=== PATIENT | male | born 1960 | race American Indian/Alaskan Native ===

== ENCOUNTER 2020-09-22 19:10 | Inpatient (IN) | payer OTHER ==
--- NOTE | 2020-09-22 19:23 | Event Note ---
ED Screening Note ED Screening Note: 60 y/o male with PMH of ETOH abuse and current pancreatic cancer resents to ED with c/o of a 4 day history of N/V/D with chills and sweats and weakness. This initial assessment/diagnostic orders/clinical plan/treatment(s) is/are subject to change based on patients health status, clinical progression and re- assessment by fellow clinical providers in the ED. Further treatment and workup at subsequent clinical providers discretion. Patient/guardian urged not to elope from the ED as their condition may be serious if not clinically assessed and managed. Initial orders include: Labs, urine, EKG (hr 135 in triage)
[2020-09-22 19:54] LABS: Hematocrit 51.2 % (35.5-45.6); Hemoglobin 17.7 gm/dl (11.8-15.2); Mean Corpuscular HGB Conc 35 % (32-34); Mean Corpuscular Volume 106 fl (84-94); Platelet Count 103 K/mm3 (140-440); Red Blood Count 4.82 M/mm3 (3.65-5.03)
[2020-09-22 19:58] LABS: Basophils % (Auto) 0.4 % (0.0-1.8); Lymphocytes # (Auto) 0.5 K/mm3 (1.2-5.4); Lymphocytes % (Auto) 16.1 % (13.4-35.0); Monocytes # (Auto) 0.3 K/mm3 (0.0-0.8); Monocytes % (Auto) 11.5 % (0.0-7.3)
[2020-09-22 20:11] LABS: Alanine Aminotransferase 63 units/L (7-56); Albumin 4.1 g/dL (3.9-5); BUN/Creatinine Ratio 6; Blood Urea Nitrogen 5 mg/dL (9-20); Calcium 9.3 mg/dL (8.4-10.2); Hemolysis Index 6
[2020-09-22] MEDS ORDERED: LORazepam 2 MG/ML VIAL IV PRN ×2 (21:52)
[2020-09-22] MEDS ORDERED: FAMOTIDINE 20 MG/2 ML INJ IV ONE (21:52)
[2020-09-22] MEDS ORDERED: diazePAM 10 MG/2 ML SYRINGE IV ONE (21:52)
--- NOTE | 2020-09-22 21:54 | Emergency Department Report ---
ED General Adult HPI - General Chief complaint: Weakness Stated complaint: ALCOHOL POISONING;CANCER PT PUI?: No Time Seen by Provider: 09/22/20 21:30 Source: patient, RN notes reviewed Mode of arrival: Wheelchair Limitations: Other (Patient is a poor historian) - History of Present Illness Initial comments: The patient was evaluated in the emergency department for symptoms described in the history of present illness. He/she was evaluated in the context of the global COVID-19 pandemic, which necessitated consideration that the patient might be at risk for infection with the virus that causes COVID-19. Institutional protocols and algorithms that pertain to the evaluation of patients at risk for COVID-19 are in a state of rapid change based on information released by regulatory bodies including the CDC and federal and s winters organizations. These policies and algorithms were followed during the patient's care in the emergency department. Please note that these policies, procedures and recommendations changed on a rapid basis. Mr. Serrano is a 60-year-old gentleman. He is not known to myself previously. He does not know who his primary care doctor is. He appears to have a history of alcoholism, question pancreatitis versus pancreatic cancer, and stroke. Patient is not sure where his diagnosis of "pancreatic cancer" was made. He does not believe he is currently taking chemotherapy or radiation therapy. He does not have an oncologist that he is aware of. He consumes alcohol on a daily basis. He reports that he consumes 4-5 beers daily. He presents to the ER today with a complaint of "I am going into withdrawal." He reports abdominal cramping, nausea, malaise, weakness, tremors. He denies headache, neck pain, chest pain, shortness of breath, homicidality, suicidality, loss of taste and smell. He denies urinary symptoms. He denies hallucinations. His last alcoholic drink was earlier on today. At the moment, his symptoms are constant, do not radiate anywhere, worsen with physical exertion, palpation, and decreased with rest. -: Gradual, hour(s) Location: abdomen Radiation: non-radiation Quality: aching Consistency: constant Improves with: rest Worsens with: movement - Related Data Home Medications Medication Instructions Recorded Confirmed Last Taken No Known Home Medications [No 09/22/20 09/22/20 Unknown Reported Home Medications] Allergies Allergy/AdvReac Type Severity Reaction Status Date / Time No Known Allergies Allergy Unverified 09/22/20 22:23 ED Review of Systems ROS: Stated complaint: ALCOHOL POISONING;CANCER PT Other details as noted in HPI Constitutional: malaise, weakness. denies: fever Eyes: denies: vision change ENT: denies: congestion Respiratory: denies: wheezing Cardiovascular: denies: chest pain Gastrointestinal: abdominal pain, nausea. denies: vomiting, hematemesis, melena, hematochezia Genitourinary: denies: dysuria Musculoskeletal: myalgia Neurological: weakness Psychiatric: denies: homicidal thoughts, suicidal thoughts ED Past Medical Hx - Past Medical History Previous Medical History?: Yes Hx CVA: Yes (18 months ago) Hx of Cancer: Yes (Pancreatic) - Surgical History Past Surgical History?: No - Medications Home Medications: Home Medications Medication Instructions Recorded Confirmed Last Taken Type No Known Home Medications [No 09/22/20 09/22/20 Unknown History Reported Home Medications] ED Physical Exam - General Limitations: Physical Limitation General appearance: alert, in no apparent distress - Head Head exam: Present: atraumatic, normocephalic - Eye Eye exam: Present: normal appearance - ENT ENT exam: Present: mucous membranes dry, normal external ear exam, other (Tongue fasciculations noted) - Neck Neck exam: Present: normal inspection, full ROM. Absent: tenderness, meningismus - Respiratory Respiratory exam: Present: decreased breath sounds. Absent: respiratory dist ress, wheezes, rales, rhonchi, stridor - Cardiovascular Cardiovascular Exam: Present: normal rhythm, tachycardia, normal heart sounds. Absent: bradycardia, irregular rhythm, systolic murmur, diastolic murmur, rubs, gallop - GI/Abdominal GI/Abdominal exam: Present: soft, tenderness (There is mild epigastric tenderness). Absent: distended, guarding, rebound, rigid, pulsatile mass - Rectal Rectal exam: Present: deferred - Extremities Exam Extremities exam: Present: normal inspection, full ROM, other (2+ pulses noted in the bilateral upper and lower extremities. There is no palpable cord. negative Homans sign. Muscular compartments are soft. The pelvis is stable.). Absent: pedal edema, joint swelling, calf tenderness - Back Exam Back exam: Present: normal inspection, full ROM. Absent: CVA tenderness (R), CVA tenderness (L), muscle spasm, paraspinal tenderness, vertebral tenderness - Neurological Exam Neurological exam: Present: alert, other (No facial droop. Tongue midline. Extraocular movements intact bilaterally. Facial sensation intact to light touch in V1, V2, V3 distribution bilaterally. 5 and a 5 strength in 4 extremities. Sensation intact to light touch in 4 extremities.) - Psychiatric Psychiatric exam: Present: anxious. Absent: homicidal ideation, suicidal ideation - Skin Skin exam: Present: warm, dry, intact, normal color. Absent: rash ED Course Vital Signs 09/22/20 09/22/20 09/22/20 19:18 22:00 22:47 Temperature 98.3 F Pulse Rate 135 H 99 H 105 H Respiratory 18 22 18 Rate Blood Pressure 141/96 Blood Pressure 148/104 152/103 [Left] O2 Sat by Pulse 99 99 98 Oximetry - Reevaluation(s) Reevaluation #1: 09/22/20 22:16 Differential diagnosis, including but not limited to: Alcohol withdrawal, dehydration, electrolyte derangement, pancreatitis Assessment and plan: 60-year-old gentleman who was tachycardic, tremulous, weak, with tongue fasciculations, likely alcohol withdrawal, with probable superimposed pancreatitis, and alcoholic transaminitis. We will treat his symptoms with IV fluids, benzodiazepines, obtain CT scan of the abdomen pelvis, and reassess after initial data points. Anticipate admission for the af orementioned. Patient not homicidal or suicidal, does not meet criteria for 1013/involuntary hold. Patient has given verbal consent for his information to be discussed with family/significant other, should the need arise. Leukopenia likely secondary to chronic alcoholism. Transaminitis likely se condary to chronic alcoholism patient denies loss of taste, loss of smell, fever, cough, Covid symptomatology. 09/22/20 22:17 09/22/20 22:18 Reevaluation #2: 09/22/20 22:27 Additional history obtained from . Patient typically follows at the CT. He was presumptively diagnosed with pancreatic cancer at the CT. He does not have an oncologist. He is not receiving any treatment for this. She is not certain how this diagnosis was made, whether it be from CAT scan, biopsy or otherwise. She brought the patient here because she was concerned about alcohol withdra wal, and dehydration as well as pancreatitis. Reevaluation #3: 09/22/20 22:37 Lactic acidosis likely type II lactic acidosis, probably secondary to chronic alcoholism. I do not suspect invasive bacterial illness at this time. Reevaluation #4: 09/22/20 22:57 CT scan abdomen pelvis reviewed and appreciated. No surgical complications noted. Pancreatitis and hepatic steatosis identified. Nonobstructing nephrolithiasis, pulmonary nodule nonemergent, this can be followed up as an outpatient. Hospital physician, Dr. Chinmay Tinajero, To admit patient to the medical service Reevaluation #5: 09/22/20 23:15 initial ciwa score 6 ED Medical Decision Making - Lab Data Result diagrams: 09/22/20 19:38 09/22/20 19:38 Vital Signs 09/22/20 09/22/20 19:18 22:00 Temperature 98.3 F Pulse Rate 135 H 99 H Respiratory 18 22 Rate Blood Pressure 141/96 Blood Pressure 148/104 [Left] O2 Sat by Pulse 99 99 Oximetry Lab Results 09/22/20 09/22/20 09/22/20 Range/Units 19:38 19:38 19:38 WBC 2.9 L (4.5-11.0) K/mm3 RBC 4.82 (3.65-5.03) M/mm3 Hgb 17.7 H (11.8-15.2) gm/dl Hct 51.2 H (35.5-45.6) % MCV 106 H (84-94) fl MCH 37 H (28-32) pg MCHC 35 H (32-34) % RDW 15.0 (13.2-15.2) % Plt Count 103 L (140-440) K/mm3 Lymph % (Auto) 16.1 (13.4-35.0) % [place] % (Auto) 11.5 H (0.0-7.3) % Eos % (Auto) 1.0 (0.0-4.3) % Baso % (Auto) 0.4 (0.0-1.8) % Lymph # (Auto) 0.5 L (1.2-5.4) K/mm3 [place] # (Auto) 0.3 (0.0-0.8) K/mm3 Eos # (Auto) 0.0 (0.0-0.4) K/mm3 Baso # (Auto) 0.0 (0.0-0.1) K/mm3 Seg Neutrophils % 71.0 H (40.0-70.0) % Seg Neutrophils # 2.0 (1.8-7.7) K/mm3 Sodium 131 L (137-145) mmol/L Potassium 3.5 L (3.6-5.0) mmol/L Chloride 89.6 L (98-107) mmol/L Carbon Dioxide 26 (22-30) mmol/L Anion Gap 19 mmol/L BUN 5 L (9-20) mg/dL Creatinine 0.8 (0.8-1.3) mg/dL Estimated GFR > 60 ml/min BUN/Creatinine Ratio 6 % Glucose 120 H (75-100) mg/dL Calcium 9.3 (8.4-10.2) mg/dL Total Bilirubin 1.00 (0.1-1.2) mg/dL AST 241 H (5-40) units/L ALT 63 H (7-56) units/L Alkaline Phosphatase 118 (35-129) units/L Total Protein 8.3 H (6.3-8.2) g/dL Albumin 4.1 (3.9-5) g/dL Albumin/Globulin Ratio 1.0 % Lipase 400 H (13-60) units/L Urine Color (Yellow) Urine Turbidity (Clear) Urine pH (5.0-7.0) Ur Specific [place] (1.003-1.030) Urine Protein (Negative) mg/dL Urine Glucose (UA) (Negative) mg/dL Urine Ketones (Negative) mg/dL Urine Blood (Negative) Urine Nitrite (Negative) Urine Bilirubin (Negative) Urine Urobilinogen (<2.0) mg/dL Ur Leukocyte Esterase (Negative) Urine WBC (Auto) (0.0-6.0) /HPF Urine RBC (Auto) (0.0-6.0) /HPF U Epithel Cells (Auto) (0-13.0) /HPF Hyaline Casts /LPF Urine Mucus /HPF Plasma/Serum Alcohol 0.05 (0-0.07) % 09/22/20 Range/Units Unknown WBC (4.5-11.0) K/mm3 RBC (3.65-5.03) M/mm3 Hgb (11.8-15.2) gm/dl Hct (35.5-45.6) % MCV (84-94) fl MCH (28-32) pg MCHC (32-34) % RDW (13.2-15.2) % Plt Count (140-440) K/mm3 Lymph % (Auto) (13.4-35.0) % [place] % (Auto) (0.0-7.3) % Eos % (Auto) (0.0-4.3) % Baso % (Auto) (0.0-1.8) % Lymph # (Auto) (1.2-5.4) K/mm3 [place] # (Auto) (0.0-0.8) K/mm3 Eos # (Auto) (0.0-0.4) K/mm3 Baso # (Auto) (0.0-0.1) K/mm3 Seg Neutrophils % (40.0-70.0) % Seg Neutrophils # (1.8-7.7) K/mm3 Sodium (137-145) mmol/L Potassium (3.6-5.0) mmol/L Chloride (98-107) mmol/L Carbon Dioxide (22-30) mmol/L Anion Gap mmol/L BUN (9-20) mg/dL Creatinine (0.8-1.3) mg/dL Estimated GFR ml/min BUN/Creatinine Ratio % Glucose (75-100) mg/dL Calcium (8.4-10.2) mg/dL Total Bilirubin (0.1-1.2) mg/dL AST (5-40) units/L ALT (7-56) units/L Alkaline Phosphatase (35-129) units/L Total Protein (6.3-8.2) g/dL Albumin (3.9-5) g/dL Albumin/Globulin Ratio % Lipase (13-60) units/L Urine Color [place] (Yellow) Urine Turbidity Clear (Clear) Urine pH 6.0 (5.0-7.0) Ur Specific [place] 1.024 (1.003-1.030) Urine Protein 100 mg/dl (Negative) mg/dL Urine Glucose (UA) Neg (Negative) mg/dL Urine Ketones Tr (Negative) mg/dL Urine Blood Sm (Negative) Urine Nitrite Neg (Negative) Urine Bilirubin Neg (Negative) Urine Urobilinogen 4.0 (<2.0) mg/dL Ur Leukocyte Esterase Neg (Negative) Urine WBC (Auto) 2.0 (0.0-6.0) /HPF Urine RBC (Auto) 3.0 (0.0-6.0) /HPF U Epithel Cells (Auto) < 1.0 (0-13.0) /HPF Hyaline Casts 1 /LPF Urine Mucus 3+ /HPF Plasma/Serum Alcohol (0-0.07) % - EKG Data -: EKG Interpreted by Ks EKG shows normal: sinus rhythm Rate: tachycardia - EKG Data When compared to previous EKG there are: previous EKG unavailable 09/22/20 22:16 EKG time of interpretation: 19: 33 There is no prior EKG available for comparison. Sinus tachycardia, 130 bpm. Borderline rightward axis deviation. Left ventricular hypertrophy. Poor R wave progression. QTc, QT, QRS, KS within normal limits. This is an abnormal EKG. There is motion artifact. This is not a STEMI. - Radiology Data Radiology results: pending, report reviewed, image reviewed CT ABDOMEN AND PELVIS WITH CONTRAST INDICATION / CLINICAL INFORMATION: acute a bd pain pancreatitis. TECHNIQUE: Axial CT images were obtained through the abdomen and pelvis after 100 cc Omni [address] scans at this location are performed using CT dose reduction for ALARA by means of automated exposure control. COMPARISON: None available. FINDINGS: LOWER CHEST: 4 mm pulmonary nodule in the posterior basal segment of the right lower lobe (axial series 2 image 18). HEPATOBILIARY: Diffuse fatty infiltration of the liver without focal hepatic lesion. No significant biliary abnormality. PANCREAS/SPLEEN/ADRENALS: Edematous, mildly enlarged appearance of the pancreatic head and uncinate process with a moderate amount of peripancreatic fluid. No definite evidence of necrosis at this time. Mild nodular thickening of the left adrenal gland. Spleen demonstrates no significant abnormality. GENITOURINARY: 5 mm right-sided nonobstructing nephrolith. No obstructive uropathy. No solid renal mass. Ureters and bladder demonstrate no significant abnormality. GASTROINTESTINAL/MESENTERY: Small left-sided fat-containing inguinal hernia with a small portion of small bowel wall herniating into the proximal aspect. No bowel obstruction. Mild reactive edema involving the retroperitoneal portions of the duodenum adjacent to the pancreatic inflammation. RETROPERITONEUM: No significant adenopathy. Small amount of upper retroperitoneal fluid. REPRODUCTIVE ORGANS: No significant abnormality. VASCULAR: Mild atherosclerotic calcification without acute abnormality. Portal venous structures, superior mesenteric vein, and splenic vein are patent. Splenic artery demonstrates no significant abnormality. BODY WALL: No significant abnormality. SKELETAL SYSTEM: Left hip gamma nail. No acute fracture or aggressive osseous lesion identified. Diffuse degenerative change. Mild levoconvex scoliosis. IMPRESSION: 1. Acute pancreatitis at the pancreatic head and uncinate process with a moderate amount of disorganized peripancreatic fluid. No evidence of del cid creatic necrosis at this time. Recommend continued follow-up, as warranted. 2. 4 mm pulmonary nodule in the right lower lung, see recommendations below. 3. Hepatic steatosis. 4. 5 mm right-sided nonobstructing nephrolith. 5. Additional findings as above. INCIDENTAL PULMONARY NODULE RECOMMENDATIONS Solid Nodule size <6 mm -- Single or Multiple - Low Risk Patient: No routine follow-up - High Risk Patient: Optional CT at 12 months Note These recommendations do not apply to lung cancer screening, patients with immunosuppression, or patients with known primary cancer. Note Newly detected indeterminate nodule in persons 35 years of age or older. Persons under the age of 35 should not receive follow-up unless there is a known primary cancer. Low Risk Patient -- minimal or absent history of smoking and of other known risk factors. High Risk Patient -- history of smoking or of other known risk factors. Nodule dimensions are average of long and short axes, rounded to the nearest millimeter. Based on 2017 Fleischner Society Guidelines found in Radiology 2017 284:228-243. http [email or web address].[email or web address] Signer Name: Jona Lutz MD Signed: 09/22/2020 9:44 PM Workstation Name: [id number] Critical Care Time: Yes Critical care time in (mins) excluding proc time.: 35 Critical care attestation.: If time is entered above; I have spent that time in minutes in the direct care of this critically ill patient, excluding procedure time. ED Disposition Clinical Impression: Transaminitis, Acute dehydration, Hepatic steatosis, Pulmonary nodule, Nephrolith Alcohol withdrawal Qualifiers: Complication of substance-induced condition: with unspecified complication Qualified Code(s): F10.239 - Alcohol dependence with withdrawal, unspecified Acute pancreatitis Qualifiers: Pancreatitis type: alcohol induced Acute pancreatitis complication: unspecified Qualified Code(s): K85.20 - Alcohol induced acute pancreatitis without necrosis or infection Disposition: DC-09 OP ADMIT IP TO THIS HOSP Is pt being admited?: Yes Does the pt Need Aspirin: No Condition: Fair Referrals: PRIMARY CARE, [Primary Care Provider] - 3-5 Days
[2020-09-22] MEDS ORDERED: D5W/0.45% NACL 1,000 ML IV SCH (22:00)
[2020-09-22 22:04] LABS: Bilirubin,Urine NEG (Negative); Blood,Urine SM (Negative); Color,Urine Amber (Yellow); Hyaline Casts,Urine 1 /LPF; Mucus,Urine 3+ /HPF
--- NOTE | 2020-09-22 22:49 | Cat Scan Report ---
CT ABDOMEN AND PELVIS WITH CONTRAST INDICATION / CLINICAL INFORMATION: acute abd pain pancreatitis. TECHNIQUE: Axial CT images were obtained through the abdomen and pelvis after 100 cc Omni [address] scans at this location are performed using CT dose reduction for ALARA by means of automated expos ure control. COMPARISON: None available. FINDINGS: LOWER CHEST: 4 mm pulmonary nodule in the posterior basal segment of the right lower lobe (axial seri es 2 image 18). HEPATOBILIARY: Diffuse fatty infiltration of the liver without focal hepatic lesion. No significant b iliary abnormality. PANCREAS/SPLEEN/ADRENALS: Edematous, mildly enlarged appearance of the pancreatic head and uncinate p rocess with a moderate amount of peripancreatic fluid. No definite evidence of necrosis at this time. Mild nodular thickening of the left adrenal gland. Spleen demonstrates no significant abnormality. GENITOURINARY: 5 mm right-sided nonobstructing nephrolith. No obstructive uropathy. No solid renal ma ss. Ureters and bladder demonstrate no significant abnormality. GASTROINTESTINAL/MESENTERY: Small left-sided fat-containing inguinal hernia with a small portion of s mall bowel wall herniating into the proximal aspect. No bowel obstruction. Mild reactive edema involv ing the retroperitoneal portions of the duodenum adjacent to the pancreatic inflammation. RETROPERITONEUM: No significant adenopathy. Small amount of upper retroperitoneal fluid. REPRODUCTIVE ORGANS: No significant abnormality. VASCULAR: Mild atherosclerotic calcification without acute abnormality. Portal venous structures, sup erior mesenteric vein, and splenic vein are patent. Splenic artery demonstrates no significant abnorm ality. BODY WALL: No significant abnormality. SKELETAL SYSTEM: Left hip gamma nail. No acute fracture or aggressive osseous lesion identified. Diff use degenerative change. Mild levoconvex scoliosis. IMPRESSION: 1. Acute pancreatitis at the pancreatic head and uncinate process with a moderate amount of disorgani zed peripancreatic fluid. No evidence of pancreatic necrosis at this time. Recommend continued follow -up, as warranted. 2. 4 mm pulmonary nodule in the right lower lung, see recommendations below. 3. Hepatic steatosis. 4. 5 mm right-sided nonobstructing nephrolith. 5. Additional findings as above. INCIDENTAL PULMONARY NODULE RECOMMENDATIONS Solid Nodule size <6 mm -- Single or Multiple - Low Risk Patient: No routine follow-up - High Risk Patient: Optional CT at 12 months Note These recommendations do not apply to lung cancer screening, patients with immunosuppression, o r patients with known primary cancer. Note Newly detected indeterminate nodule in persons 35 years of age or older. Persons under the age of 35 should not receive follow-up unless there is a known primary cancer. Low Risk Patient -- minimal or absent history of smoking and of other known risk factors. High Risk Patient -- history of smoking or of other known risk factors. Nodule dimensions are average of long and short axes, rounded to the nearest millimeter. Based on 2017 Fleischner Society Guidelines found in Radiology 2017 284:228-243. [email or web address] Signer Name: Jona Lutz MD Signed: 09/22/2020 10:44 PM Workstation Name: [id number]
[2020-09-22] MEDS ORDERED: THIAMINE 100 MG, FOLIC ACID 1 MG, MULTIPLE VITAMIN INJ, ADULT 10 ML in SODIUM CHLORIDE ... IV ONE (23:15)
[2020-09-23] MEDS ORDERED: ONDANSETRON 4 MG/2 ML INJ IV PRN (00:07)
[2020-09-23] MEDS: MORPHINE 2 MG/1 ML INJ IV PRN ×2 (00:43→09:27)
[2020-09-23] MEDS: LORazepam 2 MG/ML VIAL IV PRN ×3 (01:19→21:42)
[2020-09-23] MEDS: SODIUM CHLORIDE 0.9% 1000 ML 1,000 ML IV SCH (05:49)
--- NOTE | 2020-09-23 07:00 | History and Physical Report ---
History of Present Illness Date of examination: 09/22/20 Date of admission: 09/22/20 22:57 Chief complaint: Chief complaint is weakness and abdominal pain. History of present illness: History of presenting illness: Patient is a 60-year-old male who who started having generalized weakness and then developed pain on cramping where we are basically is epigastric abdominal pain. There is history of nausea this pain, tremor and malaise he feels like he is going into alcohol withdrawal state based on past experience, patient said that he had some alcohol drink yesterday morning prior to onset of symptoms. Past History Past Medical History: stroke, other (PANCREATIC CANCER, ALCOHOL ABUSE) Medications and Allergies Allergies Allergy/AdvReac Type Severity Reaction Status Date / Time No Known Allergies Allergy Unverified 09/22/20 22:23 Home Medications Medication Instructions Recorded Confirmed Last Taken Type No Known Home Medications [No 09/22/20 09/22/20 Unknown History Reported Home Medications] Active Meds: Active Medications Sodium Chloride (Nacl 0.9% 1000 Ml) 1,000 mls @ 125 mls/hr IV DIRECT KATELYNN Last Admin: 09/23/20 05:49 Dose: 125 mls/hr Documented by: Thiamine HCl 100 mg/ Folic Acid 1 mg/ Multivitamins/Minerals 10 ml/ Sodium Chloride 1,011.2 mls @ 250 mls/hr IV DAILY@2200 KATELYNN Lorazepam (Lorazepam 2 Mg/Ml Vial) 2 mg IV Q1HR PRN PRN Reason: CIWA-Ar 8-15 Last Admin: 09/23/20 01:19 Dose: 2 mg Documented by: Lorazepam (Lorazepam 2 Mg/Ml Vial) 4 mg IV Q1HR PRN PRN Reason: CIWA-Ar 16-25 Lorazepam (Lorazepam 2 Mg/Ml Vial) 4 mg IV Q15MIN PRN PRN Reason: CIWA-Ar >25 Morphine Sulfate (Morphine 2 Mg/1 Ml Inj) 2 mg IV Q3H PRN PRN Reason: Pain, Moderate (4-6) Last Admin: 09/23/20 00:43 Dose: 2 mg Documented by: Ondansetron HCl (Ondansetron 4 Mg/2 Ml Inj) 4 mg IV Q8H PRN PRN Reason: Nausea And Vomiting Last Admin: 09/23/20 00:44 Dose: 4 mg Documented by: Review of Systems Constitutional: weakness, no fever, no chills, no sweats, no night sweats Eyes: bilateral: other (NO BILATERAL EYE SYMPTOMS) Ears, nose, mouth and throat: no ear pain Cardiovascular: no chest pain, no orthopnea, no palpitations, no rapid/irregular heart beat, no edema, no syncope, no lightheadedness, no dyspnea on exertion Respiratory: no cough, no shortness of breath, no dyspnea on exertion, no congestion Gastrointestinal: abdominal pain, nausea, vomiting, no diarrhea, no constipation, no hematemesis, no coffee ground emesis, no loss of appetite Genitourinary Male: no hematuria, no nocturia, no incontinence Rectal: no pain Musculoskeletal: no neck pain, no low back pain, no leg numbness/tingling, no morning stiffness, no muscle weakness, no muscle cramps, no myalgias Integumentary: no rash, no pruritis, no redness, no sores, no wounds, no jaundice, no boils, no growths, no bullae, no lesions, no darkening of skin Neurological: no paralysis, no weakness, no parathesias, no numbness, no tingling, no seizures, no syncope, no tremors, no vertigo, no headaches, no migraines, no change in speech, no change in mentation, no confusion Psychiatric: no anxiety, no depression Endocrine: no polyphagia, no polydipsia, no polyuria, no nocturia, no excessive sweating, no palpatations Hematologic/Lymphatic: no easy bruising, no easy bleeding Exam - Constitutional Vitals: Temp Pulse Resp BP Pulse Ox 97.5 F L 94 H 20 147/100 98 09/23/20 04:29 09/23/20 04:18 09/23/20 04:18 09/23/20 04:18 09/23/20 04:18 General appearance: Present: mild distress - EENT Eyes: Present: PERRL, EOM intact ENT: hearing intact, clear oral mucosa, dentition normal - Neck Neck: Present: supple, normal ROM - Respiratory Respiratory effort: normal - Cardiovascular Rhythm: regular Heart Sounds: Present: S1 & S2. Absent: gallop, systolic murmur, diastolic murmur - Extremities Extremities: no ischemia, No edema Peripheral Pulses: within normal limits - Abdominal General gastrointestinal: Present: soft, tender, non-distended (.12) - Rectal Rectal Exam: deferred - Musculoskeletal Musculoskeletal: generalized weakness - Psychiatric Psychiatric: appropriate mood/affect HEART Score - HEART Score Risk factors: 1-2 risk factors Troponin: > 3x normal limit - Critical Actions Critical Actions: 0-3 pts:0.9-1.7%risk of adverse cardiac event.Candidate for di scharanil Results - Labs CBC & Chem 7: 09/22/20 19:38 09/22/20 19:38 Labs: Laboratory Last Values WBC 2.9 K/mm3 (4.5-11.0) L 09/22/20 19:38 RBC 4.82 M/mm3 (3.65-5.03) 09/22/20 19:38 Hgb 17.7 gm/dl (11.8-15.2) H 09/22/20 19:38 Hct 51.2 % (35.5-45.6) H 09/22/20 19:38 MCV 106 fl (84-94) H 09/22/20 19:38 MCH 37 pg (28-32) H 09/22/20 19:38 MCHC 35 % (32-34) H 09/22/20 19:38 RDW 15.0 % (13.2-15.2) 09/22/20 19:38 Plt Count 103 K/mm3 (140-440) L 09/22/20 19:38 Lymph % (Auto) 16.1 % (13.4-35.0) 09/22/20 19:38 [place] % (Auto) 11.5 % (0.0-7.3) H 09/22/20 19:38 Eos % (Auto) 1.0 % (0.0-4.3) 09/22/20 19:38 Baso % (Auto) 0.4 % (0.0-1.8) 09/22/20 19:38 Lymph # (Auto) 0.5 K/mm3 (1.2-5.4) L 09/22/20 19:38 [place] # (Auto) 0.3 K/mm3 (0.0-0.8) 09/22/20 19:38 Eos # (Auto) 0.0 K/mm3 (0.0-0.4) 09/22/20 19:38 Baso # (Auto) 0.0 K/mm3 (0.0-0.1) 09/22/20 19:38 Seg Neutrophils % 71.0 % (40.0-70.0) H 09/22/20 19:38 Seg Neutrophils # 2.0 K/mm3 (1.8-7.7) 09/22/20 19:38 Sodium 131 mmol/L (137-145) L 09/22/20 19:38 Potassium 3.5 mmol/L (3.6-5.0) L 09/22/20 19:38 Chloride 89.6 mmol/L (98-107) L 09/22/20 19:38 Carbon Dioxide 26 mmol/L (22-30) 09/22/20 19:38 Anion Gap 19 mmol/L 09/22/20 19:38 BUN 5 mg/dL (9-20) L 09/22/20 19:38 Creatinine 0.8 mg/dL (0.8-1.3) 09/22/20 19:38 Estimated GFR > 60 ml/min 09/22/20 19:38 BUN/Creatinine Ratio 6 % 09/22/20 19:38 Glucose 120 mg/dL (75-100) H 09/22/20 19:38 Lactic Acid 2.20 mmol/L (0.7-2.0) H* 09/22/20 21:55 Calcium 9.3 mg/dL (8.4-10.2) 09/22/20 19:38 Magnesium 1.90 mg/dL (1.7-2.3) 09/22/20 21:55 Total Bilirubin 1.00 mg/dL (0.1-1.2) 09/22/20 19:38 AST 241 units/L (5-40) H 09/22/20 19:38 ALT 63 units/L (7-56) H 09/22/20 19:38 Alkaline Phosphatase 118 units/L (35-129) 09/22/20 19:38 Total Creatine Kinase 184 units/L (55-170) H 09/22/20 21:55 Total Protein 8.3 g/dL (6.3-8.2) H 09/22/20 19:38 Albumin 4.1 g/dL (3.9-5) 09/22/20 19:38 Albumin/Globulin Ratio 1.0 % 09/22/20 19:38 Lipase 370 units/L (13-60) H 09/23/20 05:07 Urine Color [place] (Yellow) 09/22/20 Unknown Urine Turbidity Clear (Clear) 09/22/20 Unknown Urine pH 6.0 (5.0-7.0) 09/22/20 Unknown Ur Specific Trade 1.024 (1.003-1.030) 09/22/20 Unknown Urine Protein 100 mg/dl mg/dL (Negative) 09/22/20 Unknown Urine Glucose (UA) Neg mg/dL (Negative) 09/22/20 Unknown Urine Ketones Tr mg/dL (Negative) 09/22/20 Unknown Urine Blood Sm (Negative) 09/22/20 Unknown Urine Nitrite Neg (Negative) 09/22/20 Unknown Urine Bilirubin Neg (Negative) 09/22/20 Unknown Urine Urobilinogen 4.0 mg/dL (<2.0) 09/22/20 Unknown Ur Leukocyte Esterase Neg (Negative) 09/22/20 Unknown Urine WBC (Auto) 2.0 /HPF (0.0-6.0) 09/22/20 Unknown Urine RBC (Auto) 3.0 /HPF (0.0-6.0) 09/22/20 Unknown U Epithel Cells (Auto) < 1.0 /HPF (0-13.0) 09/22/20 Unknown Hyaline Casts 1 /LPF 09/22/20 Unknown Urine Mucus 3+ /HPF 09/22/20 Unknown Salicylates < 0.3 mg/dL (2.8-20.0) L 09/22/20 21:55 Acetaminophen 5.0 ug/mL (10.0-30.0) L 09/22/20 21:55 Plasma/Serum Alcohol 0.05 % (0-0.07) 09/22/20 19:38 [place]/IV: Voiding Method Toilet Assessment and Plan - Patient Problems (1) Acute pancreatitis Current Visit: Yes Status: Acute Qualifiers: Pancreatitis type: alcohol induced Acute pancreatitis complication: unspecified Qualified Code(s): K85.20 - Alcohol induced acute pancreatitis without necrosis or infection Plan to address problem: 1. NPO 2. I.V NORMAL SALINE 3. I.V MORPHINE FOR PAIN 4.I.V ZOFRAN FOR NAUSEA AND VOMITING (2) Alcohol withdrawal Current Visit: Yes Status: Acute Qualifiers: Complication of substance-induced condition: with unspecified complication Qualified Code(s): F10.239 - Alcohol dependence with withdrawal, unspecified Plan to address problem: 1. CIWA PROTOCOL 2. I.V BANANA BAG MIXTURE DAILY 3. ALCOHOL WITHDRAWAL PRECAUTION. (3) Transaminitis Current Visit: Yes Status: Acute Plan to address problem: 1. G.I CONSULT FOR ALCOHOLIC LIVER DISEASE
--- NOTE | 2020-09-23 08:28 | Progress Note ---
Assessment and Plan Assessment and plan: --Acute pancreatitis; N.p.o. status, IV fluids Pain management, GI evaluation Closely monitor transaminases And pancreatic enzymes Adjust the management as needed Abdominal ultrasound if already not done To evaluate for gallstone pancreatitis --Acute transaminitis/alcoholic liver disease Closely monitor transaminases, supportive care GI evaluation, strongly advised to quit alcohol intake --History of chronic alcohol use; counseling done Advised to quit alcohol intake, advised voluntary alcohol rehabilitation And AAA support group -Alcohol withdrawal symptoms; Closely monitor, CIWA protocol Supportive care --Ongoing tobacco use; Smoking cessation counseling Nicotine patch as needed --DVT prophylaxis; Lovenox We will closely monitor the patient and adjust the management as needed History Interval history: I have seen and examined the patient at the bedside Patient's chart and medications reviewed Admitted with acute pancreatitis Complains of mild vague abdominal pain Denies nausea and vomiting Vital signs reviewed Hospitalist Physical - Constitutional Vitals: Temp Pulse Resp BP Pulse Ox 98.9 F 93 H 20 165/116 97 09/23/20 07:51 09/23/20 07:51 09/23/20 04:18 09/23/20 07:51 09/23/20 07:51 General appearance: Present: mild distress, well-nourished - EENT Eyes: Present: PERRL, EOM intact - Neck Neck: Present: supple, normal ROM - Respiratory Respiratory effort: normal Respiratory: bilateral: diminished, negative: rales, rhonchi, wheezing - Cardiovascular Rhythm: regular Heart Sounds: Present: S1 & S2 - Extremities Extremities: no ischemia, No edema - Abdominal General gastrointestinal: soft, non-tender, non-distended, normal bowel sounds - Integumentary Integumentary: Present: clear, warm - Psychiatric Psychiatric: appropriate mood/affect, cooperative - Neurologic Neurologic: moves all extremities HEART Score - HEART Score Risk factors: 1-2 risk factors Troponin: > 3x normal limit - Critical Actions Critical Actions: 0-3 pts:0.9-1.7%risk of adverse cardiac event.Candidate for discharge Results - Labs CBC & Chem 7: 09/22/20 19:38 09/22/20 19:38 Labs: Laboratory Last Values WBC 2.9 K/mm3 (4.5-11.0) L 09/22/20 19:38 RBC 4.82 M/mm3 (3.65-5.03) 09/22/20 19:38 Hgb 17.7 gm/dl (11.8-15.2) H 09/22/20 19:38 Hct 51.2 % (35.5-45.6) H 09/22/20 19:38 MCV 106 fl (84-94) H 09/22/20 19:38 MCH 37 pg (28-32) H 09/22/20 19:38 MCHC 35 % (32-34) H 09/22/20 19:38 RDW 15.0 % (13.2-15.2) 09/22/20 19:38 Plt Count 103 K/mm3 (140-440) L 09/22/20 19:38 Lymph % (Auto) 16.1 % (13.4-35.0) 09/22/20 19:38 [place] % (Auto) 11.5 % (0.0-7.3) H 09/22/20 19:38 Eos % (Auto) 1.0 % (0.0-4.3) 09/22/20 19:38 Baso % (Auto) 0.4 % (0.0-1.8) 09/22/20 19:38 Lymph # (Auto) 0.5 K/mm3 (1.2-5.4) L 09/22/20 19:38 [place] # (Auto) 0.3 K/mm3 (0.0-0.8) 09/22/20 19:38 Eos # (Auto) 0.0 K/mm3 (0.0-0.4) 09/22/20 19:38 Baso # (Auto) 0.0 K/mm3 (0.0-0.1) 09/22/20 19:38 Seg Neutrophils % 71.0 % (40.0-70.0) H 09/22/20 19:38 Seg Neutrophils # 2.0 K/mm3 (1.8-7.7) 09/22/20 19:38 Sodium 131 mmol/L (137-145) L 09/22/20 19:38 Potassium 3.5 mmol/L (3.6-5.0) L 09/22/20 19:38 Chloride 89.6 mmol/L (98-107) L 09/22/20 19:38 Carbon Dioxide 26 mmol/L (22-30) 09/22/20 19:38 Anion Gap 19 mmol/L 09/22/20 19:38 BUN 5 mg/dL (9-20) L 09/22/20 19:38 Creatinine 0.8 mg/dL (0.8-1.3) 09/22/20 19:38 Estimated GFR > 60 ml/min 09/22/20 19:38 BUN/Creatinine Ratio 6 % 09/22/20 19:38 Glucose 120 mg/dL (75-100) H 09/22/20 19:38 Lactic Acid 2.20 mmol/L (0.7-2.0) H* 09/22/20 21:55 Calcium 9.3 mg/dL (8.4-10.2) 09/22/20 19:38 Magnesium 1.90 mg/dL (1.7-2.3) 09/22/20 21:55 Total Bilirubin 1.00 mg/dL (0.1-1.2) 09/22/20 19:38 AST 241 units/L (5-40) H 09/22/20 19:38 ALT 63 units/L (7-56) H 09/22/20 19:38 Alkaline Phosphatase 118 units/L (35-129) 09/22/20 19:38 Total Creatine Kinase 184 units/L (55-170) H 09/22/20 21:55 Total Protein 8.3 g/dL (6.3-8.2) H 09/22/20 19:38 Albumin 4.1 g/dL (3.9-5) 09/22/20 19:38 Albumin/Globulin Ratio 1.0 % 09/22/20 19:38 Lipase 370 units/L (13-60) H 09/23/20 05:07 Urine Color [place] (Yellow) 09/22/20 Unknown Urine Turbidity Clear (Clear) 09/22/20 Unknown Urine pH 6.0 (5.0-7.0) 09/22/20 Unknown Ur Specific [place] 1.024 (1.003-1.030) 09/22/20 Unknown Urine Protein 100 mg/dl mg/dL (Negative) 09/22/20 Unknown Urine Glucose (UA) Neg mg/dL (Negative) 09/22/20 Unknown Urine Ketones Tr mg/dL (Negative) 09/22/20 Unknown Urine Blood Sm (Negative) 09/22/20 Unknown Urine Nitrite Neg (Negative) 09/22/20 Unknown Urine Bilirubin Neg (Negative) 09/22/20 Unknown Urine Urobilinogen 4.0 mg/dL (<2.0) 09/22/20 Unknown Ur Leukocyte Esterase Neg (Negative) 09/22/20 Unknown Urine WBC (Auto) 2.0 /HPF (0.0-6.0) 09/22/20 Unknown Urine RBC (Auto) 3.0 /HPF (0.0-6.0) 09/22/20 Unknown U Epithel Cells (Auto) < 1.0 /HPF (0-13.0) 09/22/20 Unknown Hyaline Casts 1 /LPF 09/22/20 Unknown Urine Mucus 3+ /HPF 09/22/20 Unknown Salicylates < 0.3 mg/dL (2.8-20.0) L 09/22/20 21:55 Acetaminophen 5.0 ug/mL (10.0-30.0) L 09/22/20 21:55 Plasma/Serum Alcohol 0.05 % (0-0.07) 09/22/20 19:38 [place]/IV: Voiding Method Toilet Active Medications - Current Medications Current Medications: Generic Name Dose Route Start Last Admin Trade Name Freq PRN Reason Stop Dose Admin Sodium Chloride 1,000 mls @ 125 mls/hr 09/23/20 00:15 09/23/20 05:49 Nacl 0.9% 1000 Ml IV 125 mls/hr DIRECT KATELYNN Administration Thiamine HCl 100 mg/ Folic 1,011.2 mls @ 250 mls/hr 09/23/20 22:00 Acid 1 mg/ Multivitamins/ IV Minerals 10 ml/ Sodium DAILY@2200 KATELYNN Chloride Lorazepam 2 mg 09/22/20 21:52 09/23/20 01:19 Lorazepam 2 Mg/Ml Vial IV 2 mg Q1HR PRN Administration CIWA-Ar 8-15 Lorazepam 4 mg 09/22/20 21:52 Lorazepam 2 Mg/Ml Vial IV Q1HR PRN CIWA-Ar 16-25 Lorazepam 4 mg 09/22/20 21:52 Lorazepam 2 Mg/Ml Vial IV Q15MIN PRN CIWA-Ar >25 Morphine Sulfate 2 mg 09/23/20 00:06 09/23/20 00:43 Morphine 2 Mg/1 Ml Inj IV 2 mg Q3H PRN Administration Pain, Moderate (4-6) Ondansetron HCl 4 mg 09/23/20 00:07 09/23/20 00:44 Ondansetron 4 Mg/2 Ml Inj IV 4 mg Q8H PRN Administration Nausea And Vomiting
--- NOTE | 2020-09-23 11:30 | Ultrasound Report ---
ULTRASOUND ABDOMEN, COMPLETE INDICATION / CLINICAL INFORMATION: Acute pancreatitis/valuate for biliary causes. COMPARISON: CT dated 09/22/2020 FINDINGS: PANCREAS: Unremarkable sonographic appearance. Findings of acute pancreatitis are better evaluated on recent CT. ABDOMINAL AORTA: No significant abnormality. IVC: No significant abnormality. LIVER: The liver measures 18.4 cm in length. The liver demonstrates increased echogenicity, compatib le with fatty infiltration. No focal hepatic lesion. PORTAL VEIN: Normal hepatopedal blood flow in the main portal vein. GALLBLADDER: The gallbladder is unremarkable. There is no cholelithiasis, gallbladder wall thickening , or pericholecystic fluid. BILE DUCTS: No significant abnormality. Common bile duct measures 4 mm. KIDNEYS: Right: No significant abnormality. Left: No significant abnormality. SPLEEN: No significant abnormality. FREE FLUID: None. ADDITIONAL FINDINGS: None. IMPRESSION: 1. Hepatic steatosis and mild hepatomegaly. 2. Common bile duct is normal in caliber, measuring 4 mm. Signer Name: Andre Tiwari MD Signed: 09/23/2020 11:25 AM Workstation Name: [id number]
--- NOTE | 2020-09-23 14:44 | Consultation ---
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 He presented to the hospital complaining of tremulousness of his legs and crampy suprapubic discomfort going on for 3 days. He was found to have elevated liver enzymes, detectable alcohol, and a CT scan showing pancreatitis. Patient came in, and brought him in, thinking he was having alcohol withdrawal. Patient has never had delirium tremens before. He states he started to drink heavily approximately 6 months ago after his 58-year-old brother of Covid. Patient denies prior known history of liver disease. He has had loss of appetite and has lost 40 pounds over the last 6 months. He denies any GI bleeding. Bowel movements are usually 3-4 times a day and was unchanged until the cramping started 3 days ago. He had a watery bowel movement yesterday. There is no history of nausea or vomiting. Currently, patient is feeling much better and has no lower abdominal pain. Meds reviewed. Past History Past Medical History: stroke, other Past Surgical History: Other (LLE fracture and tomás placement years ago) Social history: smoking, alcohol abuse Medications and Allergies Allergies Allergy/AdvReac Type Severity Reaction Status Date / Time No Known Allergies Allergy Unverified 09/22/20 22:23 Home Medications Medication Instructions Recorded Confirmed Last Taken Type No Known Home Medications [No 09/22/20 09/22/20 Unknown History Reported Home Medications] Active Meds: Active Medications Sodium Chloride (Nacl 0.9% 1000 Ml) 1,000 mls @ 125 mls/hr IV DIRECT KATELYNN Last Admin: 09/23/20 05:49 Dose: 125 mls/hr Documented by: Thiamine HCl 100 mg/ Folic Acid 1 mg/ Multivitamins/Minerals 10 ml/ Sodium Chloride 1,011.2 mls @ 250 mls/hr IV DAILY@2200 KATELYNN Lorazepam (Lorazepam 2 Mg/Ml Vial) 2 mg IV Q1HR PRN PRN Reason: ANGUS-Ar 8-15 Last Admin: 09/23/20 01:19 Dose: 2 mg Documented by: Lorazepam (Lorazepam 2 Mg/Ml Vial) 4 mg IV Q1HR PRN PRN Reason: CIWA-Ar 16-25 Lorazepam (Lorazepam 2 Mg/Ml Vial) 4 mg IV Q15MIN PRN PRN Reason: CIWA-Ar >25 Morphine Sulfate (Morphine 2 Mg/1 Ml Inj) 2 mg IV Q3H PRN PRN Reason: Pain, Moderate (4-6) Last Admin: 09/23/20 09:27 Dose: 2 mg Documented by: Ondansetron HCl (Ondansetron 4 Mg/2 Ml Inj) 4 mg IV Q8H PRN PRN Reason: Nausea And Vomiting Last Admin: 09/23/20 00:44 Dose: 4 mg Documented by: Review of Systems All systems: negative (as per HPI) Exam - Constitutional Vitals: Temp Pulse Resp BP Pulse Ox 98.7 F 84 22 141/104 98 09/23/20 12:14 09/23/20 12:14 09/23/20 09:27 09/23/20 12:14 09/23/20 13:00 General appearance: Present: no acute distress, cachectic, disheveled - EENT Eyes: Present: PERRL, EOM intact ENT: hearing intact - Respiratory Respiratory effort: normal Respiratory: bilateral: CTA - Cardiovascular Rhythm: regular Heart Sounds: Present: S1 & S2 - Extremities Extremities: No edema - Abdominal General gastrointestinal: Present: soft, tender (mild epigastric) Results - Labs CBC & Chem 7: 09/22/20 19:38 09/22/20 19:38 Labs: Abnormal lab results 09/22/20 09/22/20 09/22/20 Range/Units 19:38 19:38 21:55 WBC 2.9 L (4.5-11.0) K/mm3 Hgb 17.7 H (11.8-15.2) gm/dl Hct 51.2 H (35.5-45.6) % MCV 106 H (84-94) fl MCH 37 H (28-32) pg MCHC 35 H (32-34) % Plt Count 103 L (140-440) K/mm3 [place] % (Auto) 11.5 H (0.0-7.3) % Lymph # (Auto) 0.5 L (1.2-5.4) K/mm3 Seg Neutrophils % 71.0 H (40.0-70.0) % Sodium 131 L (137-145) mmol/L Potassium 3.5 L (3.6-5.0) mmol/L Chloride 89.6 L (98-107) mmol/L BUN 5 L (9-20) mg/dL Glucose 120 H (75-100) mg/dL Lactic Acid (0.7-2.0) mmol/L AST 241 H (5-40) units/L ALT 63 H (7-56) units/L Total Creatine Kinase 184 H (55-170) units/L Total Protein 8.3 H (6.3-8.2) g/dL Lipase 400 H (13-60) units/L Salicylates (2.8-20.0) mg/dL Acetaminophen (10.0-30.0) ug/mL 09/22/20 09/22/20 09/22/20 Range/Units 21:55 21:55 21:55 WBC (4.5-11.0) K/mm3 Hgb (11.8-15.2) gm/dl Hct (35.5-45.6) % MCV (84-94) fl MCH (28-32) pg MCHC (32-34) % Plt Count (140-440) K/mm3 [place] % (Auto) (0.0-7.3) % Lymph # (Auto) (1.2-5.4) K/mm3 Seg Neutrophils % (40.0-70.0) % Sodium (137-145) mmol/L Potassium (3.6-5.0) mmol/L Chloride (98-107) mmol/L BUN (9-20) mg/dL Glucose (75-100) mg/dL Lactic Acid 2.20 H* (0.7-2.0) mmol/L AST (5-40) units/L ALT (7-56) units/L Total Creatine Kinase (55-170) units/L Total Protein (6.3-8.2) g/dL Lipase (13-60) units/L Salicylates < 0.3 L (2.8-20.0) mg/dL Acetaminophen 5.0 L (10.0-30.0) ug/mL 09/23/20 Range/Units 05:07 WBC (4.5-11.0) K/mm3 Hgb (11.8-15.2) gm/dl Hct (35.5-45.6) % MCV (84-94) fl MCH (28-32) pg MCHC (32-34) % Plt Count (140-440) K/mm3 [place] % (Auto) (0.0-7.3) % Lymph # (Auto) (1.2-5.4) K/mm3 Seg Neutrophils % (40.0-70.0) % Sodium (137-145) mmol/L Potassium (3.6-5.0) mmol/L Chloride (98-107) mmol/L BUN (9-20) mg/dL Glucose (75-100) mg/dL Lactic Acid (0.7-2.0) mmol/L AST (5-40) units/L ALT (7-56) units/L Total Creatine Kinase (55-170) units/L Total Protein (6.3-8.2) g/dL Lipase 370 H (13-60) units/L Salicylates (2.8-20.0) mg/dL Acetaminophen (10.0-30.0) ug/mL - Imaging and Cardiology CT scan - abdomen: report reviewed (mildly edematous pancreas especially in the head, and fatty liver.) Assessment and Plan 1. Abnormal liver enzymes -consistent with alcoholic liver disease based on enzyme pattern. Patient does have detectable alcohol of 0.05 on admission. -Monitor LFTs off alcohol. -Check viral hepatitis serologies. 2. Macrocytosis -likely due to alcohol. Will check vitamin B12 level given numbness in left leg. 3. Thrombocytopenia -most likely due to bone marrow suppression from alcohol. No cirrhotic contour on CT scan. Need to monitor off alcohol. 4. Pancreatitis -mild symptomatically. Due to alcohol. -Advance diet as tolerated. -We will need repeat CT scan in 3 to 4 weeks to ensure normalization.
[2020-09-23] MEDS ORDERED: THIAMINE 100 MG, FOLIC ACID 1 MG in SODIUM CHLORIDE 0.9% 1000 ML 1,000 ML IV SCH (22:00)
[2020-09-24 00:07] LABS: Amphetamine Screen,Urine PRESUMPTIVE NEGATIVE; Benzodiazepines Screen,Urine PRESUMPTIVE NEGATIVE; Cannabinoid Screen,Urine PRESUMPTIVE NEGATIVE; Cocaine Screen,Urine PRESUMPTIVE NEGATIVE; Methadone Screen,Urine PRESUMPTIVE NEGATIVE; Opiate Screen,Urine PRESUMPTIVE NEGATIVE
[2020-09-24] MEDS: SODIUM CHLORIDE 0.9% 1000 ML 1,000 ML IV SCH ×2 (05:09→14:02)
[2020-09-24] MEDS: LORazepam 2 MG/ML VIAL IV PRN (05:10)
--- NOTE | 2020-09-24 09:31 | Progress Note ---
Assessment and Plan Assessment and plan: --Acute pancreatitis; Clear liquids advance as tolerated Pain management, Closely monitor transaminases And pancreatic enzymes Adjust the management as needed Abdominal ultrasound no gallbladder disease/no cholelithiasis GI evaluation recommendations noted and appreciated --Acute transaminitis/alcoholic liver disease Closely monitor transaminases, supportive care strongly advised to quit alcohol intake --History of chronic alcohol use; counseling done Advised to quit alcohol intake, advised voluntary alcohol rehabilitation And AAA support group -Alcohol withdrawal symptoms; Closely monitor, [facility] protocol Supportive care --Ongoing tobacco use; Smoking cessation counseling Nicotine patch as needed --DVT prophylaxis;Lovenox We will closely monitor the patient and adjust the management as needed Hospitalist Physical - Constitutional Vitals: Temp Pulse Resp BP Pulse Ox 98.9 F 89 18 145/104 98 09/24/20 07:31 09/24/20 07:31 09/24/20 07:31 09/24/20 08:00 09/24/20 07:31 General appearance: Present: mild distress, well-nourished HEART Score - HEART Score Risk factors: 1-2 risk factors Troponin: > 3x normal limit - Critical Actions Critical Actions: 0-3 pts:0.9-1.7%risk of adverse cardiac event.Candidate for discharge Results - Labs CBC & Chem 7: 09/22/20 19:38 09/22/20 19:38 Labs: Laboratory Last Values WBC 2.9 K/mm3 (4.5-11.0) L 09/22/20 19:38 RBC 4.82 M/mm3 (3.65-5.03) 09/22/20 19:38 Hgb 17.7 gm/dl (11.8-15.2) H 09/22/20 19:38 Hct 51.2 % (35.5-45.6) H 09/22/20 19:38 MCV 106 fl (84-94) H 09/22/20 19:38 MCH 37 pg (28-32) H 09/22/20 19:38 MCHC 35 % (32-34) H 09/22/20 19:38 RDW 15.0 % (13.2-15.2) 09/22/20 19:38 Plt Count 103 K/mm3 (140-440) L 09/22/20 19:38 Lymph % (Auto) 16.1 % (13.4-35.0) 09/22/20 19:38 Larue % (Auto) 11.5 % (0.0-7.3) H 09/22/20 19:38 Eos % (Auto) 1.0 % (0.0-4.3) 09/22/20 19:38 Baso % (Auto) 0.4 % (0.0-1.8) 09/22/20 19:38 Lymph # (Auto) 0.5 K/mm3 (1.2-5.4) L 09/22/20 19:38 Larue # (Auto) 0.3 K/mm3 (0.0-0.8) 09/22/20 19:38 Eos # (Auto) 0.0 K/mm3 (0.0-0.4) 09/22/20 19:38 Baso # (Auto) 0.0 K/mm3 (0.0-0.1) 09/22/20 19:38 Seg Neutrophils % 71.0 % (40.0-70.0) H 09/22/20 19:38 Seg Neutrophils # 2.0 K/mm3 (1.8-7.7) 09/22/20 19:38 Sodium 131 mmol/L (137-145) L 09/22/20 19:38 Potassium 3.5 mmol/L (3.6-5.0) L 09/22/20 19:38 Chloride 89.6 mmol/L (98-107) L 09/22/20 19:38 Carbon Dioxide 26 mmol/L (22-30) 09/22/20 19:38 Anion Gap 19 mmol/L 09/22/20 19:38 BUN 5 mg/dL (9-20) L 09/22/20 19:38 Creatinine 0.8 mg/dL (0.8-1.3) 09/22/20 19:38 Estimated GFR > 60 ml/min 09/22/20 19:38 BUN/Creatinine Ratio 6 % 09/22/20 19:38 Glucose 120 mg/dL (75-100) H 09/22/20 19:38 Lactic Acid 2.20 mmol/L (0.7-2.0) H* 09/22/20 21:55 Calcium 9.3 mg/dL (8.4-10.2) 09/22/20 19:38 Magnesium 1.90 mg/dL (1.7-2.3) 09/22/20 21:55 Total Bilirubin 1.00 mg/dL (0.1-1.2) 09/22/20 19:38 AST 241 units/L (5-40) H 09/22/20 19:38 ALT 63 units/L (7-56) H 09/22/20 19:38 Alkaline Phosphatase 118 units/L (35-129) 09/22/20 19:38 Total Creatine Kinase 184 units/L (55-170) H 09/22/20 21:55 Total Protein 8.3 g/dL (6.3-8.2) H 09/22/20 19:38 Albumin 4.1 g/dL (3.9-5) 09/22/20 19:38 Albumin/Globulin Ratio 1.0 % 09/22/20 19:38 Lipase 370 units/L (13-60) H 09/23/20 05:07 Vitamin B12 805.2 pg/mL (211-911) 09/23/20 14:48 Urine Color Aleida (Yellow) 09/22/20 Unknown Urine Turbidity Clear (Clear) 09/22/20 Unknown Urine pH 6.0 (5.0-7.0) 09/22/20 Unknown Ur Specific [place] 1.024 (1.003-1.030) 09/22/20 Unknown Urine Protein 100 mg/dl mg/dL (Negative) 09/22/20 Unknown Urine Glucose (UA) Neg mg/dL (Negative) 09/22/20 Unknown Urine Ketones Tr mg/dL (Negative) 09/22/20 Unknown Urine Blood Sm (Negative) 09/22/20 Unknown Urine Nitrite Neg (Negative) 09/22/20 Unknown Urine Bilirubin Neg (Negative) 09/22/20 Unknown Urine Urobilinogen 4.0 mg/dL (<2.0) 09/22/20 Unknown Ur Leukocyte Esterase Neg (Negative) 09/22/20 Unknown Urine WBC (Auto) 2.0 /HPF (0.0-6.0) 09/22/20 Unknown Urine RBC (Auto) 3.0 /HPF (0.0-6.0) 09/22/20 Unknown U Epithel Cells (Auto) < 1.0 /HPF (0-13.0) 09/22/20 Unknown Hyaline Casts 1 /LPF 09/22/20 Unknown Urine Mucus 3+ /HPF 09/22/20 Unknown Salicylates < 0.3 mg/dL (2.8-20.0) L 09/22/20 21:55 Urine Opiates Screen Presumptive negative 09/23/20 23:14 Urine Methadone Screen Presumptive negative 09/23/20 23:14 Acetaminophen 5.0 ug/mL (10.0-30.0) L 09/22/20 21:55 Ur Barbiturates Screen Presumptive negative 09/23/20 23:14 Ur Phencyclidine Scrn Presumptive negative 09/23/20 23:14 Ur Amphetamines Screen Presumptive negative 09/23/20 23:14 U Benzodiazepines Scrn Presumptive negative 09/23/20 23:14 Urine Cocaine Screen Presumptive negative 09/23/20 23:14 U Marijuana (THC) Screen Presumptive negative 09/23/20 23:14 Drugs of Abuse Note Disclamer 09/23/20 23:14 Plasma/Serum Alcohol 0.05 % (0-0.07) 09/22/20 19:38 [place]/IV: Voiding Method Urinal Active Medications - Current Medications Current Medications: Generic Name Dose Route Start Last Admin Trade Name Freq PRN Reason Stop Dose Admin Sodium Chloride 1,000 mls @ 125 mls/hr 09/23/20 00:15 09/24/20 05:09 Nacl 0.9% 1000 Ml IV 125 mls/hr DIRECT KATELYNN Administration Thiamine HCl 100 mg/ Folic 1,001.2 mls @ 250 mls/hr 09/23/20 22:00 09/23/20 21:42 Acid 1 mg/ Sodium Chloride IV 250 mls/hr DAILY@2200 KATELYNN Administration Lorazepam 2 mg 09/22/20 21:52 09/24/20 05:10 Lorazepam 2 Mg/Ml Vial IV 2 mg Q1HR PRN Administration CIWA-Ar 8-15 Lorazepam 4 mg 09/22/20 21:52 Lorazepam 2 Mg/Ml Vial IV Q1HR PRN CIWA-Ar 16-25 Lorazepam 4 mg 09/22/20 21:52 Lorazepam 2 Mg/Ml Vial IV Q15MIN PRN CIWA-Ar >25 Morphine Sulfate 2 mg 09/23/20 00:06 09/23/20 09:27 Morphine 2 Mg/1 Ml Inj IV 2 mg Q3H PRN Administration Pain, Moderate (4-6) Ondansetron HCl 4 mg 09/23/20 00:07 09/23/20 00:44 Ondansetron 4 Mg/2 Ml Inj IV 4 mg Q8H PRN Administration Nausea And Vomiting Nutrition/Malnutrition Assess - Dietary Evaluation Nutrition/Malnutrition Findings: Nutrition Notes Start: 09/23/20 12:42 Freq: Status: Active Protocol: Document 09/23/20 12:42 AB (Rec: 09/23/20 12:54 AB [id number]) Co-Sign 09/23/20 12:42 MK Nutrition Notes Need for Assessment generated from: security professionals,MST Initial or Follow up Assessment Other Pertinent Diagnosis EtOH withdrawal, acute pancreatitis, hepatic steatosis, pulmonary nodule Current Diet NPO Labs/Tests Na 131 K 3.5 BUN 5 Pertinent Medications Zofran Banana bag Height 6 ft Weight 72.575 kg Usual Body Weight 79.5 kg [place] Body Weight (kg) 80.90 BMI 21.7 Intake Prior to Admission Good Weight change and time frame 9% wt loss in 1 month Weight Status Appropriate Subjective/Other Information RN screen for MST. Pt very tired and confused during time of visit. Pt unable to answer questions during visit. DI observed pt to have temporal wasting and body fat loss. Per chart, pt to be getting GI evaluation for alcoholic fatty liver disease. Percent of energy/protein needs met: 0%/0% Burn Absent Trauma Absent Current % PO Negligible Minimum of two criteria Yes Interpretation of Weight Loss (severe) >5% in 1 month Body Fat Depletion Mild depletion (non-severe) Muscle Mass Mild Depletion (non-severe) #2 Nutrition Diagnosis Malnutrition Etiology EtOH dependence As Evidenced by Signs and Symptoms wt loss of >5% in 1 month, body fat and muscle depletion #1 Nutrition Diagnosis Predicted suboptimal energy intake Etiology chronic illness, EtOH withdrawal As Evidenced by Signs and Symptoms Pt unable to consume PO Is patient on ventilator? No Is Patient Ambulatory and/or Out of Bed No REE-([facility]-confined to bed) [phone] Kcal/Kg value to use for calculation 28 Approximate Energy Requirements Using 2 kcal/Kg Calculation Used for Recommendations Kcal/kg Additional Notes Protein needs: 72-86 g (1-1.2 g/kg) Fluid needs: 1 ml/kcal or per MD Nutrition Intervention Change Diet Order: Advance diet when medically feasible Add Supplement/Snack (indicate name/kcal When diet is advanced, /protein ) recommend: Ensure Enlive daily Provides kCal: 350 Provides Protein (gm) 20 Goal #1 Diet advancement Anticipated Discharge Needs: Regular diet Follow-Up By: 09/25/20 Additional Comments F/U for diet advancement, wt changes, intakes, ONS
[2020-09-24 11:11] LABS: Alanine Aminotransferase 35 units/L (7-56); BUN/Creatinine Ratio 5; Blood Urea Nitrogen 4 mg/dL (9-20); Calcium 8.1 mg/dL (8.4-10.2); Hemolysis Index 6
--- NOTE | 2020-09-24 11:24 | Progress Note ---
Assessment and Plan 1. Abnormal liver enzymes -consistent with alcoholic liver disease based on enzyme pattern. Much improved. Patient did have detectable alcohol of 0.05 on admission. -Monitor LFTs off alcohol, as outpatient. -Check viral hepatitis serologies. 2. Macrocytosis -likely due to alcohol. B12 level normal. 3. Thrombocytopenia -most likely due to bone marrow suppression from alcohol. No cirrhotic contour on CT scan. Need to monitor off alcohol. 4. Pancreatitis -mild symptomatically. Due to alcohol. -Advance diet as tolerated. -We will need repeat CT scan in 3 to 4 weeks to ensure normalization. Okay to discharge from GI standpoint. Will sign off. Thanks. Subjective Date of service: 09/24/20 Interval history: Pt denies abd pain, N/V. Ana po well. Objective - Constitutional Vitals: Vital Signs - 12hr 09/24/20 09/24/20 09/24/20 01:00 03:46 05:12 Temperature 99.8 F H Pulse Rate 101 H 92 H 100 H Respiratory 18 Rate Blood Pressure 173/113 Blood Pressure [Left] O2 Sat by Pulse 92 99 Oximetry 09/24/20 09/24/20 09/24/20 07:31 08:00 10:00 Temperature 98.9 F Pulse Rate 89 81 Respiratory 18 Rate Blood Pressure Blood Pressure 145/104 [Left] O2 Sat by Pulse 98 Oximetry General appearance: Present: no acute distress - EENT Eyes: PERRL, EOM intact ENT: hearing intact - Respiratory Respiratory effort: normal - Gastrointestinal General gastrointestinal: Present: soft, non-tender - Labs CBC & Chem 7: 09/22/20 19:38 09/24/20 10:06 Labs: Abnormal lab results 09/24/20 Range/Units 10:06 Sodium 132 L (137-145) mmol/L Potassium 3.1 L (3.6-5.0) mmol/L Chloride 97.8 L (98-107) mmol/L BUN 4 L (9-20) mg/dL Calcium 8.1 L (8.4-10.2) mg/dL AST 86 H (5-40) units/L Albumin 3.0 L (3.9-5) g/dL Lipase 170 H (13-60) units/L Medications & Allergies - Medications Allergies/Adverse Reactions: Allergies No Known Allergies Allergy (Unverified 09/22/20 22:23) Home Medications: Home Medications Medication Instructions Recorded Confirmed Last Taken Type No Known Home Medications [No 09/22/20 09/22/20 Unknown History Reported Home Medications] Active Medications: Generic Name Dose Route Start Last Admin Trade Name Melida PRN Reason Stop Dose Admin Sodium Chloride 1,000 mls @ 125 mls/hr 09/23/20 00:15 09/24/20 05:09 Nacl 0.9% 1000 Ml IV 125 mls/hr DIRECT KATELYNN Administration Thiamine HCl 100 mg/ Folic 1,001.2 mls @ 250 mls/hr 09/23/20 22:00 09/23/20 21:42 Acid 1 mg/ Sodium Chloride IV 250 mls/hr DAILY@2200 KATELYNN Administration Lorazepam 2 mg 09/22/20 21:52 09/24/20 05:10 Lorazepam 2 Mg/Ml Vial IV 2 mg Q1HR PRN Administration CIWA-Ar 8-15 Lorazepam 4 mg 09/22/20 21:52 Lorazepam 2 Mg/Ml Vial IV Q1HR PRN CIWA-Ar 16-25 Lorazepam 4 mg 09/22/20 21:52 Lorazepam 2 Mg/Ml Vial IV Q15MIN PRN CIWA-Ar >25 Morphine Sulfate 2 mg 09/23/20 00:06 09/23/20 09:27 Morphine 2 Mg/1 Ml Inj IV 2 mg Q3H PRN Administration Pain, Moderate (4-6) Ondansetron HCl 4 mg 09/23/20 00:07 09/23/20 00:44 Ondansetron 4 Mg/2 Ml Inj IV 4 mg Q8H PRN Administration Nausea And Vomiting HEART Score - HEART Score Risk factors: 1-2 risk factors Troponin: > 3x normal limit - Critical Actions Critical Actions: 0-3 pts:0.9-1.7%risk of adverse cardiac event.Candidate for discharge
[2020-09-24 13:29] VITALS: BP 141/104
--- NOTE | 2020-09-24 13:54 | Discharge Summary ---
Providers - Providers Date of Admission: 09/23/20 10:06 Date of discharge: 09/24/20 Attending physician: MED LIN 09/23/20 07:13 Consult to Physician [CONS] Routine Comment: Consulting Provider: PARISH GUALLPA Physician Instructions: Reason For Exam: ALCOHOLIC LIVER DISEASE Primary care physician: KEYBOARD TEACHER Hospitalization Condition: Fair Disposition: DC-01 TO HOME OR SELFCARE Time spent for discharge: 35 min Core Measure Documentation - Palliative Care Palliative Care/ Comfort Measures: Not Applicable - Core Measures Any of the following diagnoses?: none Exam - Constitutional Vitals: Temp Pulse Resp BP Pulse Ox 99.7 F H 89 18 141/104 100 09/24/20 11:52 09/24/20 11:52 09/24/20 11:52 09/24/20 11:52 09/24/20 11:52 General appearance: Present: no acute distress, well-nourished - EENT Eyes: Present: PERRL, EOM intact - Neck Neck: Present: supple, normal ROM - Respiratory Respiratory effort: normal Respiratory: bilateral: diminished, negative: rales, rhonchi, wheezing - Cardiovascular Rhythm: regular Heart Sounds: Present: S1 & S2 - Extremities Extremities: no ischemia, No edema - Abdominal General gastrointestinal: Present: soft, non-tender, non-distended, normal bowel sounds - Integumentary Integumentary: Present: clear, warm - Musculoskeletal Musculoskeletal: strength equal bilaterally - Psychiatric Psychiatric: appropriate mood/affect, cooperative - Neurologic Neurologic: CNII-XII intact, moves all extremities Plan Activity: advance as tolerated Diet: other (Full liquid diet advance as tolerated) Special Instructions: smoking cessation Additional Instructions: Full liquid diet advance as tolerated. advised to follow-up with private GI per schedule. If you have worsening symptoms contact MD or go to emergency room as needed. Advised smoking cessation, nicotine patch as needed Follow up with: PRIMARY CARE, [Primary Care Provider] - 3-5 Days ARMANDO WAITE MD [Staff Physician] - 7 Days Prescriptions: Folic Acid [Folvite] 1 mg PO QDAY #30 tablet Pantoprazole [Protonix TAB] 20 mg PO QDAY #30 tablet. Thiamine HCl [Vitamin B-1] 100 mg PO DAILY #30 tablet
== END 2020-09-24 16:27 | disposition home or self-care (01) | DRG 439 ==
LOC: ED 19:10 → 4A 22:57 → OBSVTOIN 09-23 10:06
PROVIDERS: ADMIT Internal Medicine; ATTEND Internal Medicine
DX: K85.20 Alcohol induced acute pancreatitis without necrosis or infection (principal); F10.239 Alcohol dependence with withdrawal, unspecified; K76.9 Liver disease, unspecified; E86.0 Dehydration; N20.0 Calculus of kidney; R91.1 Solitary pulmonary nodule; R74.01 Elevation of levels of liver transaminase levels; D69.6 Thrombocytopenia, unspecified; D75.89 Other specified diseases of blood and blood-forming organs; Z86.73 Personal history of transient ischemic attack (TIA), and cerebral infarction without residual deficits; Z79.899 Other long term (current) drug therapy
CPT/HCPCS: 36415; 74177; 76700; 80053; 80307; 80320; 81001; 82140; 82550; 82607; 83690; 83735; 85025; 93005; 96365; 96375; 99406; G0378; G0480; J2060; J2270; J2405; J3360; J3411; J7030; Q9967

== ENCOUNTER 2021-01-02 09:53 | Inpatient (IN) | payer OTHER ==
[2021-01-02] MEDS ORDERED: MORPHINE 4 MG/1 ML INJ IV ONE (10:46)
[2021-01-02] MEDS ORDERED: ONDANSETRON 4 MG/2 ML INJ IV ONE ×2 (10:46→14:33)
[2021-01-02] MEDS ORDERED: SODIUM CHLORIDE 0.9% 1000 ML 1,000 ML IV ONE ×2 (10:48→14:33)
--- NOTE | 2021-01-02 10:55 | Event Note ---
ED Screening Note Date of service: 01/02/21 Time: 10:54 ED Screening Note: Patient presents with sudden onset of abdominal pain History of pancreatitis, states had a drink last night Pain feels like his pancreatitis per patient Denies chest pain or shortness of breath Nausea without vomiting per patient No hematochezia or melena This initial assessment/diagnostic orders/clinical plan/treatment(s) is/are subject to change based on patients health status, clinical progression and re-assessment by fellow clinical providers in the ED. Further treatment and workup at subsequent clinical providers discretion. Patient/guardian urged not to elope from the ED as their condition may be serious if not clinically assessed and managed. Initial orders include: Labs
[2021-01-02] MEDS ORDERED: LORazepam 2 MG/ML VIAL ONE (11:16)
[2021-01-02 11:41] LABS: Alanine Aminotransferase 20 units/L (7-56); Albumin 4.2 g/dL (3.9-5); Blood Urea Nitrogen 6 mg/dL (9-20); Calcium 9.2 mg/dL (8.4-10.2); Hemolysis Index 7
[2021-01-02 11:42] LABS: Basophils % (Auto) 0.6 % (0.0-1.8); Eosinophils % (Auto) 0.1 % (0.0-4.3); Hematocrit 43.7 % (35.5-45.6); Hemoglobin 14.9 gm/dl (11.8-15.2); Lymphocytes # (Auto) 0.6 K/mm3 (1.2-5.4); Lymphocytes % (Auto) 11.8 % (13.4-35.0); Mean Corpuscular HGB Conc 34 % (32-34); Mean Corpuscular Volume 110 fl (84-94); Monocytes # (Auto) 0.3 K/mm3 (0.0-0.8); Monocytes % (Auto) 6.5 % (0.0-7.3); Platelet Count 233 K/mm3 (140-440); Red Blood Count 3.99 M/mm3 (3.65-5.03); Red Cell Distribution Width 17.5 % (13.2-15.2)
[2021-01-02 11:48] LABS: BUN/Creatinine Ratio 10
[2021-01-02] MEDS ORDERED: HYDROmorphone 1 MG/1 ML INJ ONE (14:24)
[2021-01-02] MEDS ORDERED: SODIUM CHLORIDE 0.9% 1000 ML 1,000 ML ONE (14:24)
[2021-01-02] MEDS ORDERED: ONDANSETRON 4 MG/2 ML INJ ONE (14:24)
[2021-01-02] MEDS ORDERED: HYDROmorphone 1 MG/1 ML INJ IV ONE ×2 (14:33→15:20)
--- NOTE | 2021-01-02 15:22 | Emergency Department Report ---
ED Abdominal Pain HPI - General Chief Complaint: Abdominal Pain Stated Complaint: PANCREATITIS Time Seen by Provider: 01/02/21 10:45 Source: EMS Mode of arrival: Stretcher Limitations: No Limitations - History of Present Illness Initial Comments: 60-year-old -[place] male presents to the emergency room for acute abdominal pain. Patient states that he has a history of pancreatitis and feels that it is flaring up. Patient does admit to having a last drink of alcohol was last night. Patient admits to nausea but no vomiting. Patient states his pain is a 10 out of 10. Patient denies any fever chills no diarrhea no chest pain no headache. MD Complaint: abdominal pain Severity scale (0 -10): 10 - Related Data Previous Rx's Medication Instructions Recorded Last Taken Type Folic Acid [Folvite] 1 mg PO QDAY #30 tablet 09/24/20 Unknown Rx Nicotine [Habitrol] 14 mg TD DAILY #30 patch 09/24/20 Unknown Rx Pantoprazole [Protonix TAB] 20 mg PO QDAY #30 tablet. 09/24/20 Unknown Rx Thiamine HCl [Vitamin B-1] 100 mg PO DAILY #30 tablet 09/24/20 Unknown Rx Allergies Allergy/AdvReac Type Severity Reaction Status Date / Time No Known Allergies Allergy Verified 01/02/21 20:03 ED Review of Systems ROS: Stated complaint: PANCREATITIS Other details as noted in HPI ED Past Medical Hx - Past Medical History Previous Medical History?: Yes Hx CVA: Yes (18 months ago) Additional medical history: pancreatitis - Surgical History Past Surgical History?: No - Social History Smoking Status: Current Every Day Smoker Substance Use Type: Alcohol - Medications Home Medications: Home Medications Medication Instructions Recorded Confirmed Last Taken Type Folic Acid [Folvite] 1 mg PO QDAY #30 tablet 09/24/20 Unknown Rx Nicotine [Habitrol] 14 mg TD DAILY #30 patch 09/24/20 Unknown Rx Pantoprazole [Protonix TAB] 20 mg PO QDAY #30 tablet. 09/24/20 Unknown Rx Thiamine HCl [Vitamin B-1] 100 mg PO DAILY #30 tablet 09/24/20 Unknown Rx ED Physical Exam - General Limitations: No Limitations General appearance: alert, in distress - Head Head exam: Present: atraumatic, normocephalic, normal inspection - Eye Eye exam: Present: normal appearance - ENT ENT exam: Present: normal exam - Neck Neck exam: Present: normal inspection, full ROM - Respiratory Respiratory exam: Present: normal lung sounds bilaterally. Absent: respiratory distress, accessory muscle use - Cardiovascular Cardiovascular Exam: Present: regular rate, normal rhythm. Absent: systolic murmur, diastolic murmur, rubs, gallop - GI/Abdominal GI/Abdominal exam: Present: soft, tenderness, guarding, normal bowel sounds. Absent: distended - Extremities Exam Extremities exam: Present: normal inspection, full ROM - Back Exam Back exam: Present: normal inspection, full ROM - Neurological Exam Neurological exam: Present: alert, oriented X3, normal gait - Psychiatric Psychiatric exam: Present: normal affect, normal mood - Skin Skin exam: Present: warm, dry, intact, normal color. Absent: rash ED Course Vital Signs 01/02/21 01/02/21 01/02/21 10:46 16:23 19:30 Temperature 98.0 F Pulse Rate 86 78 87 Respiratory 16 11 L 18 Rate Blood Pressure 121/86 182/111 O2 Sat by Pulse 99 99 95 Oximetry 01/02/21 01/02/21 01/02/21 20:24 20:31 20:54 Temperature Pulse Rate 89 Respiratory 18 16 18 Rate Blood Pressure 161/115 O2 Sat by Pulse 94 Oximetry 01/02/21 01/02/21 01/02/21 21:01 21:31 22:03 Temperature Pulse Rate 93 H 92 H 90 Respiratory 17 19 Rate Blood Pressure 144/111 155/117 165/113 O2 Sat by Pulse 96 95 Oximetry - Consultations Consultation #1: 01/02/21 17:[address] Pillai hospitalist concern for patient needing to be admitted for acute pancreatitis. Bridge orders have been placed. ED Medical Decision Making - Lab Data Result diagrams: 01/02/21 11:05 01/02/21 11:05 - Radiology Data [facility] [address] [place] [address] Cat Scan Report Signed Patient: RHIANNON GAGNON JR MR#: [id number] : 1960 Acct:[id number] Age/Sex: 60 / M ADM Date: 01/02/21 Loc: ED Attending Dr: Ordering Physician: FELISHA BONILLA Date of Service: 01/02/21 Procedure(s): CT abdomen pelvis w con Accession Number(s): [id number] cc: FELISHA BONILLA CT ABDOMEN AND PELVIS WITH CONTRAST INDICATION / CLINICAL INFORMATION: Periumbilical/epigastric pain; history of pancreat OMNI 300 100 ML. TECHNIQUE: Axial CT images were obtained through the abdomen and pelvis after IV contrast. All CT scans at this location are performed using CT dose reduction for ALARA by means of automated exposure control. COMPARISON: None available. FINDINGS: LOWER CHEST: No significant abnormality. LIVER: Mild diffuse fatty infiltration. GALLBLADDER: No significant abnormality. BILE DUCTS: No significant abnormality. PANCREAS: Diffuse thickening of the pancreas with adjacent fluid/inflammation more localized at the pancreatic tail region. No pancreatic necrosis. SPLEEN: No significant abnormality. ADRENALS: No significant abnormality. RIGHT KIDNEY / URETER: No significant abnormality. LEFT KIDNEY / URETER: No significant abnormality. STOMACH / SMALL BOWEL: No significant abnormality. COLON: No significant abnormality. APPENDIX: No significant abnormality. PERITONEUM: No free fluid. No free air. No fluid collection. LYMPH NODES: No significant adenopathy. VASCULAR STRUCTURES: No significant abnormality. URINARY BLADDER: No significant abnormality. REPRODUCTIVE ORGANS: No significant abnormality. ADDITIONAL FINDINGS: Left inguinal hernia containing small bowel is nonobstructing. SKELETAL SYSTEM: No significant abnormality. IMPRESSION: 1. Acute pancreatitis with adjacent fluid/inflammation. No necrosis. Findings greatest at the pancreatic tail. 2. Left inguinal hernia containing small bowel is nonobstructing. Signer Name: Abdifatah Oswald MD Signed: 01/02/2021 3:36 PM Workstation Name: [id number] Transcribed By: ES Dictated By: Abdifatah Oswald MD Electronically Authenticated By: Abdifatah Oswald MD Signed Date/Time: 01/02/21 153 DD/ 153 TD/TT: Print Cancel - Medical Decision Making 60-year-old -[place] male presents to the emergency room for acute abdominal pain. Patient states that he has a history of pancreatitis and feels that it is flaring up. Patient does admit to having a last drink of alcohol was last night. Patient admits to nausea but no vomiting. Patient states his pain is a 10 out of 10. Patient denies any fever chills no diarrhea no chest pain no headache. Patient CT scan shows an acute pancreatitis with inflammation no fluid. Shows no necrosis. Patient lipase is 683. Patient's been given fluid, Dilaudid, Zofran. Discussed case with attending ER. Talk to hospitalist Dr. Pillai for ad mission. Bridge orders placed Critical care attestation.: If time is entered above; I have spent that time in minutes in the direct care of this critically ill patient, excluding procedure time. ED Disposition Clinical Impression: Acute pancreatitis Qualifiers: Pancreatitis type: alcohol induced Acute pancreatitis complication: no infection or necrosis Qualified Code(s): K85.20 - Alcohol induced acute pancreatitis without necrosis or infection Disposition: DC-09 OP ADMIT IP TO THIS HOSP Is pt being admited?: Yes Does the pt Need Aspirin: No Condition: Stable Referrals: PRIMARY CARE, [Primary Care Provider] - 3-5 Days
--- NOTE | 2021-01-02 15:41 | Cat Scan Report ---
CT ABDOMEN AND PELVIS WITH CONTRAST INDICATION / CLINICAL INFORMATION: Periumbilical/epigastric pain; history of pancreat OMNI 300 100 ML . TECHNIQUE: Axial CT images were obtained through the abdomen and pelvis after IV contrast. All CT sc ans at this location are performed using CT dose reduction for ALARA by means of automated exposure c ontrol. COMPARISON: None available. FINDINGS: LOWER CHEST: No significant abnormality. LIVER: Mild diffuse fatty infiltration. GALLBLADDER: No significant abnormality. BILE DUCTS: No significant abnormality. PANCREAS: Diffuse thickening of the pancreas with adjacent fluid/inflammation more localized at the p ancreatic tail region. No pancreatic necrosis. SPLEEN: No significant abnormality. ADRENALS: No significant abnormality. RIGHT KIDNEY / URETER: No significant abnormality. LEFT KIDNEY / URETER: No significant abnormality. STOMACH / SMALL BOWEL: No significant abnormality. COLON: No significant abnormality. APPENDIX: No significant abnormality. PERITONEUM: No free fluid. No free air. No fluid collection. LYMPH NODES: No significant adenopathy. VASCULAR STRUCTURES: No significant abnormality. URINARY BLADDER: No significant abnormality. REPRODUCTIVE ORGANS: No significant abnormality. ADDITIONAL FINDINGS: Left inguinal hernia containing small bowel is nonobstructing. SKELETAL SYSTEM: No significant abnormality. IMPRESSION: 1. Acute pancreatitis with adjacent fluid/inflammation. No necrosis. Findings greatest at the pancrea tic tail. 2. Left inguinal hernia containing small bowel is nonobstructing. Signer Name: Abdifatah Oswald MD Signed: 01/02/2021 3:36 PM Workstation Name: [id number]
[2021-01-02] MEDS ORDERED: HYDROmorphone 2 MG/1 ML INJ IV ONE (16:22)
[2021-01-02] MEDS ORDERED: ONDANSETRON 4 MG/2 ML INJ IV PRN (19:41)
[2021-01-02] MEDS ORDERED: MORPHINE 2 MG/1 ML INJ IV PRN (19:41)
[2021-01-02] MEDS ORDERED: ACETAMINOPHEN 325 MG TAB PO PRN (19:41)
[2021-01-02] MEDS ORDERED: METOCLOPRAMIDE 10 MG/2 ML INJ IV PRN (19:41)
[2021-01-02] MEDS: HYDROmorphone 1 MG/1 ML INJ IV PRN ×2 (20:24→23:50)
[2021-01-02] MEDS: NICOTINE 14 MG/24 HR PATCH TD SCH (21:13)
--- NOTE | 2021-01-02 21:16 | History and Physical Report ---
History of Present Illness Date of examination: 01/02/21 Date of admission: 01/02/21 17:34 Chief complaint: Abdominal pain since last night History of present illness: 60-year-old -[place] male with history of EtOH dependence, GERD and recurrent pancreatitis and nicotine dependence comes in for abdominal pain since last night. Patient apparently had 4-6 beers last night. Poor historian. Pain is epigastric in location and about 10 on a scale of 1-10. No fever or chills. Pain is intermittent but nearly continuous. Associated with nausea. No vomitin g. Alcohol is a exacerbating factor. Spicy food is a exacerbating factor. Relieved by drinking milk. Had similar episodes of pancreatitis in the past. - Past Medical History Previous Medical History?: Yes --CVA: Yes (18 months ago) --Family history additional medical history: pancreatitis - Surgical History Past Surgical History?: No - Social History --Smoking Status: Current Every Day Smoker --Substance Use Type: Alcohol Family history Htn - Medications Home Medications: Home Medications Medication Instructions Recorded Confirmed Last Taken Type Folic Acid [Folvite] 1 mg PO QDAY #30 tablet 09/24/20 Unknown Rx Nicotine [Habitrol] 14 mg TD DAILY #30 patch 09/24/20 Unknown Rx Pantoprazole [Protonix TAB] 20 mg PO QDAY #30 tablet. 09/24/20 Unknown Rx Thiamine HCl [Vitamin B-1] 100 mg PO DAILY #30 tablet 09/24/20 Unknown Rx Review of Systems ROS: Constitutional no weight loss or weight gain no fever or chills HEENT no sore throat no post nasal drip no diplopia Neck no neck stiffness no lymph gland enlargement Chest and lungs no shortness of breath cough or wheezing CVS no chest pain no diaphoresis no palpitations GI severe epigastric pain associated with nausea--pain is 10 on a scale of 1-10 Genitourinary system no dysuria no flank pain Musculoskeletal system no muscle pains no joint pains [employer] no syncope no seizures Skin no rash no itching Psychiatric no depression no homicidal or suicidal tendencies Hematologic no lymphedema or bruising Endocrine no polydipsia no polyuria no cold intolerance no heat intolerance Medications and Allergies Allergies Allergy/AdvReac Type Severity Reaction Status Date / Time No Known Allergies Allergy Verified 01/02/21 20:03 Home Medications Medication Instructions Recorded Confirmed Last Taken Type Folic Acid [Folvite] 1 mg PO QDAY #30 tablet 09/24/20 Unknown Rx Nicotine [Habitrol] 14 mg TD DAILY #30 patch 09/24/20 Unknown Rx Pantoprazole [Protonix TAB] 20 mg PO QDAY #30 tablet. 09/24/20 Unknown Rx Thiamine HCl [Vitamin B-1] 100 mg PO DAILY #30 tablet 09/24/20 Unknown Rx Active Meds: Active Medications Acetaminophen (Acetaminophen 325 Mg Tab) 650 mg PO Q4H PRN PRN Reason: Pain MILD(1-3)/Fever >100.5/MILLER Famotidine (Famotidine 20 Mg/2 Ml Inj) 20 mg IV BID KATELYNN Hydromorphone HCl (Hydromorphone 1 Mg/1 Ml Inj) 1 mg IV Q3H PRN PRN Reason: Pain , Severe (7-10) Last Admin: 01/02/21 20:24 Dose: 1 mg Documented by: Dextrose/Sodium Chloride (D5ns) 1,000 mls @ 100 mls/hr IV DIRECT KATELYNN Metoclopramide HCl (Metoclopramide 10 Mg/2 Ml Inj) 10 mg IV Q6H PRN PRN Reason: Nausea And Vomiting Morphine Sulfate (Morphine 2 Mg/1 Ml Inj) 2 mg IV Q4H PRN PRN Reason: Pain, Moderate (4-6) Nicotine (Nicotine 14 Mg/24 Hr Patch) 14 mg TD DAILY KATELYNN Ondansetron HCl (Ondansetron 4 Mg/2 Ml Inj) 4 mg IV Q3H PRN PRN Reason: Nausea And Vomiting Sodium Chloride (Sodium Chloride 0.9% 10 Ml Flush Syringe) 10 ml IV BID KATELYNN Sodium Chloride (Sodium Chloride 0.9% 10 Ml Flush Syringe) 10 ml IV PRN PRN PRN Reason: LINE FLUSH Exam - Constitutional Vitals: Temp Pulse Resp BP Pulse Ox 98.0 F 89 16 161/115 94 01/02/21 10:46 01/02/21 20:31 01/02/21 20:31 01/02/21 20:31 01/02/21 20:31 General appearance: Present: no acute distress, well-nourished - EENT Eyes: Present: PERRL ENT: hearing intact, clear oral mucosa - Neck Neck: Present: supple, normal ROM - Respiratory Respiratory effort: normal Respiratory: bilateral: CTA - Cardiovascular Heart rate: 78 Rhythm: regular Heart Sounds: Present: S1 & S2. Absent: rub, click - Extremities Extremities: pulses symmetrical, No edema Peripheral Pulses: within normal limits - Abdominal General gastrointestinal: Present: soft, tender, non-distended, normal bowel sounds Localized gastrointestinal: tender: epigastric periumbilical, guarding: epigastric periumbilical, rebound: epigastric periumbilical Male genitourinary: Present: normal - Integumentary Integumentary: Present: clear, warm, dry - Musculoskeletal Musculoskeletal: gait normal, strength equal bilaterally - Psychiatric Psychiatric: appropriate mood/affect, intact judgment & insight - Neurologic Neurologic: CNII-XII intact, moves all extremities - Allied Health Allied health notes reviewed: nursing, case management Results - Labs CBC & Chem 7: 01/02/21 11:05 01/02/21 11:05 Labs: Laboratory Last Values WBC 5.2 K/mm3 (4.5-11.0) 01/02/21 11:05 RBC 3.99 M/mm3 (3.65-5.03) 01/02/21 11:05 Hgb 14.9 gm/dl (11.8-15.2) 01/02/21 11:05 Hct 43.7 % (35.5-45.6) 01/02/21 11:05 MCV 110 fl (84-94) H 01/02/21 11:05 MCH 37 pg (28-32) H 01/02/21 11:05 MCHC 34 % (32-34) 01/02/21 11:05 RDW 17.5 % (13.2-15.2) H 01/02/21 11:05 Plt Count 233 K/mm3 (140-440) 01/02/21 11:05 Lymph % (Auto) 11.8 % (13.4-35.0) L 01/02/21 11:05 [place] % (Auto) 6.5 % (0.0-7.3) 01/02/21 11:05 Eos % (Auto) 0.1 % (0.0-4.3) 01/02/21 11:05 Baso % (Auto) 0.6 % (0.0-1.8) 01/02/21 11:05 Lymph # (Auto) 0.6 K/mm3 (1.2-5.4) L 01/02/21 11:05 [place] # (Auto) 0.3 K/mm3 (0.0-0.8) 01/02/21 11:05 Eos # (Auto) 0.0 K/mm3 (0.0-0.4) 01/02/21 11:05 Baso # (Auto) 0.0 K/mm3 (0.0-0.1) 01/02/21 11:05 Seg Neutrophils % 81.0 % (40.0-70.0) H 01/02/21 11:05 Seg Neutrophils # 4.2 K/mm3 (1.8-7.7) 01/02/21 11:05 Sodium 134 mmol/L (137-145) L 01/02/21 11:05 Potassium 4.0 mmol/L (3.6-5.0) 01/02/21 11:05 Chloride 94.4 mmol/L (98-107) L 01/02/21 11:05 Carbon Dioxide 25 mmol/L (22-30) 01/02/21 11:05 Anion Gap 19 mmol/L 01/02/21 11:05 BUN 6 mg/dL (9-20) L 01/02/21 11:05 Creatinine 0.6 mg/dL (0.8-1.3) L 01/02/21 11:05 Estimated GFR > 60 ml/min 01/02/21 11:05 BUN/Creatinine Ratio 10 % 01/02/21 11:05 Glucose 85 mg/dL (75-100) 01/02/21 11:05 Calcium 9.2 mg/dL (8.4-10.2) 01/02/21 11:05 Total Bilirubin 0.70 mg/dL (0.1-1.2) 01/02/21 11:05 AST 62 units/L (5-40) H 01/02/21 11:05 ALT 20 units/L (7-56) 01/02/21 11:05 Alkaline Phosphatase 87 units/L (35-129) 01/02/21 11:05 Total Protein 7.8 g/dL (6.3-8.2) 01/02/21 11:05 Albumin 4.2 g/dL (3.9-5) 01/02/21 11:05 Albumin/Globulin Ratio 1.2 % 01/02/21 11:05 Lipase 683 units/L (13-60) H 01/02/21 11:05 Short CBC 01/02/21 Range/Units 11:05 WBC 5.2 (4.5-11.0) K/mm3 Hgb 14.9 (11.8-15.2) gm/dl Hct 43.7 (35.5-45.6) % Plt Count 233 (140-440) K/mm3 BMP 01/02/21 11:05 Sodium 134 L Potassium 4.0 Chloride 94.4 L Carbon Dioxide 25 BUN 6 L Creatinine 0.6 L Glucose 85 Calcium 9.2 Liver Function 01/02/21 Range/Units 11:05 Total Bilirubin 0.70 (0.1-1.2) mg/dL AST 62 H (5-40) units/L ALT 20 (7-56) units/L Alkaline Phosphatase 87 (35-129) units/L Albumin 4.2 (3.9-5) g/dL Urine 01/02/21 Range/Units 20:54 Urine Color Yellow (Yellow) Urine pH 6.0 (5.0-7.0) Ur Specific [place] 1.050 H (1.003-1.030) Urine Protein 30 mg/dl (Negative) mg/dL Urine Glucose (UA) Neg (Negative) mg/dL - Imaging and Cardiology CT scan - abdomen: report reviewed Imaging and Cardiology: 1 abdominal CAT scan Acute pancreatitis with adjacent fluid/inflammation. No necrosis. Findings greatest in the pancreatic tail Assessment and Plan Advance Directives: Yes (Full code) VTE prophylaxis?: Chemical Plan of care discussed with patient/family: Yes - Patient Problems (1) Acute pancreatitis Current Visit: Yes Status: Acute Qualifiers: Pancreatitis type: alcohol induced Acute pancreatitis complication: no infection or necrosis Qualified Code(s): K85.20 - Alcohol induced acute pancreatitis without necrosis or infection Plan to address problem: CT abdomen and lipase consistent with pancreatitis Lipase is 683 Amylase was not done Probably EtOH induced Patient is regular EtOH dependent Drinks about 6 packs a day of beer.. We will keep for now for now the patient n.p.o. IV fluids for now (2) EtOH dependence Current Visit: Yes Status: Chronic Qualifiers: Substance use status: uncomplicated Qualified Code(s): F10.20 - Alcohol dependence, uncomplicated Plan to address problem: Patient initiated on CIWA protocol Banana bag initiated (3) Acute gastritis Current Visit: Yes Status: Acute Qualifiers: Gastritis type: alcoholic Plan to address problem: IV famotidine 20 mg twice a day (4) Macrocytosis Current Visit: Yes Status: Chronic Plan to address problem: Check folic acid and B12 level (5) Acute dehydration Current Visit: No Status: Acute Plan to address problem: IV fluids for now (6) Nicotine dependence Current Visit: Yes Status: Chronic Qualifiers: Nicotine product type: cigarettes Plan to address problem: Patient counseled about stopping smoking Patient initiated on NicoDerm patch (7) Hyponatremia Current Visit: Yes Status: Acute Plan to address problem: IV normal saline for now (8) DVT prophylaxis Current Visit: Yes Status: Acute Plan to address problem: On heparin and GI prophylaxis
[2021-01-02 21:17] LABS: Bacteria,Urine 1+ /HPF (Negative); Bilirubin,Urine NEG (Negative); Blood,Urine NEG (Negative); Color,Urine Yellow (Yellow); Mucus,Urine FEW /HPF; WBC,Urine < 1.0 /HPF (0.0-6.0)
[2021-01-02] MEDS ORDERED: THIAMINE 100 MG, FOLIC ACID 1 MG, MULTIPLE VITAMIN INJ, ADULT 10 ML in SODIUM CHLORIDE ... IV ONE (22:00)
[2021-01-02] MEDS: FAMOTIDINE 20 MG/2 ML INJ IV SCH (22:03)
[2021-01-02] MEDS: hydrALAZINE 20 MG/1 ML INJ IV PRN (22:03)
[2021-01-02] MEDS: D5W/0.9% NACL 1,000 ML IV SCH (22:03)
[2021-01-03 04:57] LABS: Basophils % (Auto) 0.1 % (0.0-1.8); Eosinophils # (Auto) 0.1 K/mm3 (0.0-0.4); Eosinophils % (Auto) 2.4 % (0.0-4.3); Hematocrit 41.3 % (35.5-45.6); Hemoglobin 14.4 gm/dl (11.8-15.2); Lymphocytes # (Auto) 0.4 K/mm3 (1.2-5.4); Lymphocytes % (Auto) 12.9 % (13.4-35.0); Mean Corpuscular HGB Conc 35 % (32-34); Mean Corpuscular Volume 110 fl (84-94); Monocytes # (Auto) 0.3 K/mm3 (0.0-0.8); Monocytes % (Auto) 9.3 % (0.0-7.3); Platelet Count 187 K/mm3 (140-440); Red Blood Count 3.76 M/mm3 (3.65-5.03); Red Cell Distribution Width 17.7 % (13.2-15.2)
[2021-01-03 05:19] LABS: Alanine Aminotransferase 17 units/L (7-56); Albumin 3.8 g/dL (3.9-5); BUN/Creatinine Ratio 12; Blood Urea Nitrogen 6 mg/dL (9-20); Calcium 8.8 mg/dL (8.4-10.2); Hemolysis Index 6
[2021-01-03] MEDS: HYDROmorphone 1 MG/1 ML INJ IV PRN ×5 (06:36→22:21)
--- NOTE | 2021-01-03 08:18 | Progress Note ---
Assessment and Plan Assessment and plan: (1) Acute pancreatitis Current Visit: Yes Status: Acute Qualifiers: Pancreatitis type: alcohol induced Acute pancreatitis complication: no infection or necrosis Qualified Code(s): K85.20 - Alcohol induced acute pancreatitis without necrosis or infection Plan to address problem: CT abdomen and lipase consistent with pancreatitis Lipase is 683 Amylase was not done Probably EtOH induced Patient is regular EtOH dependent Drinks about 6 packs a day of beer.. We will keep for now for now the patient n.p.o. IV fluids for now (2) EtOH dependence Current Visit: Yes Status: Chronic Qualifiers: Substance use status: uncomplicated Qualified Code(s): F10.20 - Alcohol dependence, uncomplicated Plan to address problem: Patient initiated on CIWA protocol Banana bag initiated (3) Acute gastritis Current Visit: Yes Status: Acute Qualifiers: Gastritis type: alcoholic Plan to address problem: IV famotidine 20 mg twice a day (4) Macrocytosis Current Visit: Yes Status: Chronic Plan to address problem: Check folic acid and B12 level (5) Acute dehydration Current Visit: No Status: Acute Plan to address problem: IV fluids for now (6) Nicotine dependence Current Visit: Yes Status: Chronic Qualifiers: Nicotine product type: cigarettes Plan to address problem: Patient counseled about stopping smoking Patient initiated on NicoDerm patch (7) Hyponatremia Current Visit: Yes Status: Acute Plan to address problem: IV normal saline for now (8) DVT prophylaxis Current Visit: Yes Status: Acute Plan to address problem: On heparin and GI prophylaxis 01/03/2021 -Acute pancreatitis; pain control. Bowel rest, symptomatic management. -Lipase level is trending down -We will resume with clear liquid diet once abdominal pain is getting better -Extensively counseled about cessation of alcohol History Interval history: Patient was seen and evaluated this morning Patient admitted for acute pancreatitis Patient is complaining epigastric pain 8 out of 10 intensity No nausea or vomiting Hospitalist Physical - Physical exam Narrative exam: Not in cardiopulmonary distress. The patient appeared well nourished and normally developed. Vital signs as documented. Head exam is unremarkable. No scleral icterus . Neck is without jugular venous distension, thyromegaly, or carotid bruits. Lungs are clear to auscultation. Cardiac exam reveals regular rate and Rhythm. Abdominal exam reveals tenderness in the right upper quadrant area Extremities are nonedematous and both femoral and pedal pulses are normal. 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 No focal weakness. - Constitutional Vitals: Temp Pulse Resp BP Pulse Ox 98.5 F 86 18 173/105 95 01/03/21 07:00 01/03/21 07:00 01/03/21 07:00 01/03/21 07:00 01/03/21 07:00 General appearance: Present: no acute distress, well-nourished Results - Labs CBC & Chem 7: 01/03/21 04:06 01/03/21 04:06 Labs: Laboratory Last Values WBC 3.1 K/mm3 (4.5-11.0) L 01/03/21 04:06 RBC 3.76 M/mm3 (3.65-5.03) 01/03/21 04:06 Hgb 14.4 gm/dl (11.8-15.2) 01/03/21 04:06 Hct 41.3 % (35.5-45.6) 01/03/21 04:06 MCV 110 fl (84-94) H 01/03/21 04:06 MCH 38 pg (28-32) H 01/03/21 04:06 MCHC 35 % (32-34) H 01/03/21 04:06 RDW 17.7 % (13.2-15.2) H 01/03/21 04:06 Plt Count 187 K/mm3 (140-440) 01/03/21 04:06 Lymph % (Auto) 12.9 % (13.4-35.0) L 01/03/21 04:06 [place] % (Auto) 9.3 % (0.0-7.3) H 01/03/21 04:06 Eos % (Auto) 2.4 % (0.0-4.3) 01/03/21 04:06 Baso % (Auto) 0.1 % (0.0-1.8) 01/03/21 04:06 Lymph # (Auto) 0.4 K/mm3 (1.2-5.4) L 01/03/21 04:06 [place] # (Auto) 0.3 K/mm3 (0.0-0.8) 01/03/21 04:06 Eos # (Auto) 0.1 K/mm3 (0.0-0.4) 01/03/21 04:06 Baso # (Auto) 0.0 K/mm3 (0.0-0.1) 01/03/21 04:06 Seg Neutrophils % 75.3 % (40.0-70.0) H 01/03/21 04:06 Seg Neutrophils # 2.4 K/mm3 (1.8-7.7) 01/03/21 04:06 Sodium 136 mmol/L (137-145) L 01/03/21 04:06 Potassium 3.8 mmol/L (3.6-5.0) 01/03/21 04:06 Chloride 98.7 mmol/L (98-107) 01/03/21 04:06 Carbon Dioxide 28 mmol/L (22-30) 01/03/21 04:06 Anion Gap 13 mmol/L 01/03/21 04:06 BUN 6 mg/dL (9-20) L 01/03/21 04:06 Creatinine 0.5 mg/dL (0.8-1.3) L 01/03/21 04:06 Estimated GFR > 60 ml/min 01/03/21 04:06 BUN/Creatinine Ratio 12 % 01/03/21 04:06 Glucose 120 mg/dL (75-100) H 01/03/21 04:06 Hemoglobin A1c 4.9 % (4-6) 01/03/21 04:06 Calcium 8.8 mg/dL (8.4-10.2) 01/03/21 04:06 Magnesium 2.40 mg/dL (1.7-2.3) H 01/03/21 04:06 Total Bilirubin 0.80 mg/dL (0.1-1.2) 01/03/21 04:06 AST 43 units/L (5-40) H 01/03/21 04:06 ALT 17 units/L (7-56) 01/03/21 04:06 Alkaline Phosphatase 83 units/L (35-129) 01/03/21 04:06 Total Protein 7.1 g/dL (6.3-8.2) 01/03/21 04:06 Albumin 3.8 g/dL (3.9-5) L 01/03/21 04:06 Albumin/Globulin Ratio 1.2 % 01/03/21 04:06 Amylase 251 units/L (27-131) H 01/03/21 04:06 Lipase 466 units/L (13-60) H 01/03/21 04:06 Urine Color Yellow (Yellow) 01/02/21 20:54 Urine Turbidity Clear (Clear) 01/02/21 20:54 Urine pH 6.0 (5.0-7.0) 01/02/21 20:54 Ur Specific [place] 1.050 (1.003-1.030) H 01/02/21 20:54 Urine Protein 30 mg/dl mg/dL (Negative) 01/02/21 20:54 Urine Glucose (UA) Neg mg/dL (Negative) 01/02/21 20:54 Urine Ketones 20 mg/dL (Negative) 01/02/21 20:54 Urine Blood Neg (Negative) 01/02/21 20:54 Urine Nitrite Neg (Negative) 01/02/21 20:54 Urine Bilirubin Neg (Negative) 01/02/21 20:54 Urine Urobilinogen 2.0 mg/dL (<2.0) 01/02/21 20:54 Ur Leukocyte Esterase Neg (Negative) 01/02/21 20:54 Urine WBC (Auto) < 1.0 /HPF (0.0-6.0) 01/02/21 20:54 Urine RBC (Auto) 1.0 /HPF (0.0-6.0) 01/02/21 20:54 U Epithel Cells (Auto) < 1.0 /HPF (0-13.0) 01/02/21 20:54 Urine Bacteria (Auto) 1+ /HPF (Negative) 01/02/21 20:54 Urine Mucus Few /HPF 01/02/21 20:54 Active Medications - Current Medications Current Medications: Generic Name Dose Route Start Last Admin Trade Name Freq PRN Reason Stop Dose Admin Acetaminophen 650 mg 01/02/21 19:41 Acetaminophen 325 Mg Tab PO Q4H PRN Pain MILD(1-3)/Fever >100.5/MILLER Famotidine 20 mg 01/02/21 22:00 01/02/21 22:03 Famotidine 20 Mg/2 Ml Inj IV 20 mg BID KATELYNN Administration Hydralazine HCl 10 mg 01/02/21 21:54 01/02/21 22:03 Hydralazine 20 Mg/1 Ml Inj IV 10 mg Q6HR PRN Administration Hypertension Hydromorphone HCl 1 mg 01/02/21 19:41 01/03/21 06:36 Hydromorphone 1 Mg/1 Ml Inj IV 1 mg Q3H PRN Administration Pain , Severe (7-10) Dextrose/Sodium Chloride 1,000 mls @ 100 mls/hr 01/02/21 20:00 01/02/21 22:03 D5ns IV 100 mls/hr DIRECT KATELYNN Administration Metoclopramide HCl 10 mg 01/02/21 19:41 Metoclopramide 10 Mg/2 Ml Inj IV Q6H PRN Nausea And Vomiting Morphine Sulfate 2 mg 01/02/21 19:41 Morphine 2 Mg/1 Ml Inj IV Q4H PRN Pain, Moderate (4-6) Nicotine 14 mg 01/02/21 20:00 01/02/21 21:13 Nicotine 14 Mg/24 Hr Patch TD 14 mg DAILY KATELYNN Administration Ondansetron HCl 4 mg 01/02/21 19:41 Ondansetron 4 Mg/2 Ml Inj IV Q3H PRN Nausea And Vomiting Sodium Chloride 10 ml 01/02/21 22:00 01/02/21 22:03 Sodium Chloride 0.9% 10 Ml Flush Syringe IV 10 ml BID KATELYNN Administration Sodium Chloride 10 ml 01/02/21 19:41 Sodium Chloride 0.9% 10 Ml Flush Syringe IV PRN PRN LINE FLUSH
[2021-01-03] MEDS: hydrALAZINE 20 MG/1 ML INJ IV PRN (08:25)
[2021-01-03] MEDS: FAMOTIDINE 20 MG/2 ML INJ IV SCH ×2 (08:26→21:29)
[2021-01-03] MEDS: NICOTINE 14 MG/24 HR PATCH TD SCH (09:54)
[2021-01-03] MEDS: D5W/0.9% NACL 1,000 ML IV SCH ×2 (09:54→20:02)
[2021-01-03] MEDS ORDERED: LORazepam 2 MG/ML VIAL IV PRN (11:30)
[2021-01-04] MEDS: HYDROmorphone 1 MG/1 ML INJ IV PRN ×5 (03:28→20:33)
[2021-01-04 04:44] LABS: Basophils % (Auto) 0.3 % (0.0-1.8); Eosinophils # (Auto) 0.2 K/mm3 (0.0-0.4); Eosinophils % (Auto) 6.3 % (0.0-4.3); Hematocrit 39.9 % (35.5-45.6); Hemoglobin 13.8 gm/dl (11.8-15.2); Lymphocytes # (Auto) 0.6 K/mm3 (1.2-5.4); Lymphocytes % (Auto) 18.6 % (13.4-35.0); Mean Corpuscular HGB Conc 35 % (32-34); Mean Corpuscular Volume 110 fl (84-94); Monocytes # (Auto) 0.3 K/mm3 (0.0-0.8); Monocytes % (Auto) 8.8 % (0.0-7.3); Platelet Count 154 K/mm3 (140-440); Red Blood Count 3.61 M/mm3 (3.65-5.03); Red Cell Distribution Width 17.7 % (13.2-15.2)
[2021-01-04 05:03] LABS: Alanine Aminotransferase 14 units/L (7-56); Albumin 3.5 g/dL (3.9-5); Blood Urea Nitrogen 5 mg/dL (9-20); Calcium 8.6 mg/dL (8.4-10.2); Hemolysis Index 5
[2021-01-04 05:18] LABS: BUN/Creatinine Ratio 8
[2021-01-04] MEDS: FAMOTIDINE 20 MG/2 ML INJ IV SCH (09:04)
[2021-01-04] MEDS: NICOTINE 14 MG/24 HR PATCH TD SCH (09:04)
--- NOTE | 2021-01-04 09:19 | Progress Note ---
Assessment and Plan Assessment and plan: (1) Acute pancreatitis Current Visit: Yes Status: Acute Qualifiers: Pancreatitis type: alcohol induced Acute pancreatitis complication: no infection or necrosis Qualified Code(s): K85.20 - Alcohol induced acute pancreatitis without necrosis or infection Plan to address problem: CT abdomen and lipase consistent with pancreatitis Lipase is 683 Amylase was not done Probably EtOH induced Patient is regular EtOH dependent Drinks about 6 packs a day of beer.. We will keep for now for now the patient n.p.o. IV fluids for now (2) EtOH dependence Current Visit: Yes Status: Chronic Qualifiers: Substance use status: uncomplicated Qualified Code(s): F10.20 - Alcohol dependence, uncomplicated Plan to address problem: Patient initiated on CIWA protocol Banana bag initiated (3) Acute gastritis Current Visit: Yes Status: Acute Qualifiers: Gastritis type: alcoholic Plan to address problem: IV famotidine 20 mg twice a day (4) Macrocytosis Current Visit: Yes Status: Chronic Plan to address problem: Check folic acid and B12 level (5) Acute dehydration Current Visit: No Status: Acute Plan to address problem: IV fluids for now (6) Nicotine dependence Current Visit: Yes Status: Chronic Qualifiers: Nicotine product type: cigarettes Plan to address problem: Patient counseled about stopping smoking Patient initiated on NicoDerm patch (7) Hyponatremia Current Visit: Yes Status: Acute Plan to address problem: IV normal saline for now (8) DVT prophylaxis Current Visit: Yes Status: Acute Plan to address problem: On heparin and GI prophylaxis 01/03/2021 -Acute pancreatitis; pain control. Bowel rest, symptomatic management. -Lipase level is trending down -We will resume with clear liquid diet once abdominal pain is getting better -Extensively counseled about cessation of alcohol 01/04/2021 -Patient started on clear liquid diet, will advance as tolerated -Pain control -Replete hypokalemia History Interval history: Patient was seen and evaluated this morning Patient admitted for acute pancreatitis Patient still have abdominal pain but is getting better No nausea or vomiting Hospitalist Physical - Physical exam Narrative exam: Not in cardiopulmonary distress. The patient appeared well nourished and normally developed. Vital signs as documented. Head exam is unremarkable. No scleral icterus . Neck is without jugular venous distension, thyromegaly, or carotid bruits. Lungs are clear to auscultation. Cardiac exam reveals regular rate and Rhythm. Abdominal exam reveals tenderness in the right upper quadrant area Extremities are nonedematous and both femoral and pedal pulses are normal. 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 No focal weakness. - Constitutional Vitals: Temp Pulse Resp BP Pulse Ox 98.6 F 84 24 124/89 96 01/04/21 08:00 01/04/21 08:00 01/04/21 08:00 01/04/21 08:00 01/04/21 08:00 General appearance: Present: no acute distress, well-nourished Results - Labs CBC & Chem 7: 01/04/21 04:07 01/04/21 04:07 Labs: Laboratory Last Values WBC 3.3 K/mm3 (4.5-11.0) L 01/04/21 04:07 RBC 3.61 M/mm3 (3.65-5.03) L 01/04/21 04:07 Hgb 13.8 gm/dl (11.8-15.2) 01/04/21 04:07 Hct 39.9 % (35.5-45.6) 01/04/21 04:07 MCV 110 fl (84-94) H 01/04/21 04:07 MCH 38 pg (28-32) H 01/04/21 04:07 MCHC 35 % (32-34) H 01/04/21 04:07 RDW 17.7 % (13.2-15.2) H 01/04/21 04:07 Plt Count 154 K/mm3 (140-440) 01/04/21 04:07 Lymph % (Auto) 18.6 % (13.4-35.0) 01/04/21 04:07 [place] % (Auto) 8.8 % (0.0-7.3) H 01/04/21 04:07 Eos % (Auto) 6.3 % (0.0-4.3) H 01/04/21 04:07 Baso % (Auto) 0.3 % (0.0-1.8) 01/04/21 04:07 Lymph # (Auto) 0.6 K/mm3 (1.2-5.4) L 01/04/21 04:07 [place] # (Auto) 0.3 K/mm3 (0.0-0.8) 01/04/21 04:07 Eos # (Auto) 0.2 K/mm3 (0.0-0.4) 01/04/21 04:07 Baso # (Auto) 0.0 K/mm3 (0.0-0.1) 01/04/21 04:07 Seg Neutrophils % 66.0 % (40.0-70.0) 01/04/21 04:07 Seg Neutrophils # 2.2 K/mm3 (1.8-7.7) 01/04/21 04:07 Sodium 134 mmol/L (137-145) L 01/04/21 04:07 Potassium 3.3 mmol/L (3.6-5.0) L 01/04/21 04:07 Chloride 99.2 mmol/L (98-107) 01/04/21 04:07 Carbon Dioxide 26 mmol/L (22-30) 01/04/21 04:07 Anion Gap 12 mmol/L 01/04/21 04:07 BUN 5 mg/dL (9-20) L 01/04/21 04:07 Creatinine 0.6 mg/dL (0.8-1.3) L 01/04/21 04:07 Estimated GFR > 60 ml/min 01/04/21 04:07 BUN/Creatinine Ratio 8 % 01/04/21 04:07 Glucose 89 mg/dL (75-100) 01/04/21 04:07 Hemoglobin A1c 4.9 % (4-6) 01/03/21 04:06 Calcium 8.6 mg/dL (8.4-10.2) 01/04/21 04:07 Magnesium 2.40 mg/dL (1.7-2.3) H 01/03/21 04:06 Total Bilirubin 0.80 mg/dL (0.1-1.2) 01/04/21 04:07 AST 30 units/L (5-40) 01/04/21 04:07 ALT 14 units/L (7-56) 01/04/21 04:07 Alkaline Phosphatase 74 units/L (35-129) 01/04/21 04:07 Total Protein 6.6 g/dL (6.3-8.2) 01/04/21 04:07 Albumin 3.5 g/dL (3.9-5) L 01/04/21 04:07 Albumin/Globulin Ratio 1.1 % 01/04/21 04:07 Amylase 251 units/L (27-131) H 01/03/21 04:06 Lipase 466 units/L (13-60) H 01/03/21 04:06 Urine Color Yellow (Yellow) 01/02/21 20:54 Urine Turbidity Clear (Clear) 01/02/21 20:54 Urine pH 6.0 (5.0-7.0) 01/02/21 20:54 Ur Specific [place] 1.050 (1.003-1.030) H 01/02/21 20:54 Urine Protein 30 mg/dl mg/dL (Negative) 01/02/21 20:54 Urine Glucose (UA) Neg mg/dL (Negative) 01/02/21 20:54 Urine Ketones 20 mg/dL (Negative) 01/02/21 20:54 Urine Blood Neg (Negative) 01/02/21 20:54 Urine Nitrite Neg (Negative) 01/02/21 20:54 Urine Bilirubin Neg (Negative) 01/02/21 20:54 Urine Urobilinogen 2.0 mg/dL (<2.0) 01/02/21 20:54 Ur Leukocyte Esterase Neg (Negative) 01/02/21 20:54 Urine WBC (Auto) < 1.0 /HPF (0.0-6.0) 01/02/21 20:54 Urine RBC (Auto) 1.0 /HPF (0.0-6.0) 01/02/21 20:54 U Epithel Cells (Auto) < 1.0 /HPF (0-13.0) 01/02/21 20:54 Urine Bacteria (Auto) 1+ /HPF (Negative) 01/02/21 20:54 Urine Mucus Few /HPF 01/02/21 20:54 [place]/IV: Voiding Method Urinal Active Medications - Current Medications Current Medications: Generic Name Dose Route Start Last Admin Trade Name Freq PRN Reason Stop Dose Admin Acetaminophen 650 mg 01/02/21 19:41 Acetaminophen 325 Mg Tab PO Q4H PRN Pain MILD(1-3)/Fever >100.5/MILLER Famotidine 20 mg 01/02/21 22:00 01/04/21 09:04 Famotidine 20 Mg/2 Ml Inj IV 20 mg BID KATELYNN Administration Hydralazine HCl 10 mg 01/02/21 21:54 01/03/21 08:25 Hydralazine 20 Mg/1 Ml Inj IV 10 mg Q6HR PRN Administration Hypertension Hydromorphone HCl 1 mg 01/02/21 19:41 01/04/21 07:09 Hydromorphone 1 Mg/1 Ml Inj IV 1 mg Q3H PRN Administration Pain , Severe (7-10) Dextrose/Sodium Chloride 1,000 mls @ 100 mls/hr 01/02/21 20:00 01/03/21 20:02 D5ns IV 100 mls/hr DIRECT KATELYNN Administration Lorazepam 2 mg 01/03/21 11:30 Lorazepam 2 Mg/Ml Vial IV Q1H PRN CIWA-Ar 8-15 Lorazepam 4 mg 01/03/21 11:30 Lorazepam 2 Mg/Ml Vial IV Q15MIN PRN CIWA-Ar >25 Lorazepam 4 mg 01/03/21 11:30 Lorazepam 2 Mg/Ml Vial IV Q1H PRN CIWA-Ar 16-25 Metoclopramide HCl 10 mg 01/02/21 19:41 Metoclopramide 10 Mg/2 Ml Inj IV Q6H PRN Nausea And Vomiting Morphine Sulfate 2 mg 01/02/21 19:41 Morphine 2 Mg/1 Ml Inj IV Q4H PRN Pain, Moderate (4-6) Nicotine 14 mg 01/02/21 20:00 01/04/21 09:04 Nicotine 14 Mg/24 Hr Patch TD 14 mg DAILY KATELYNN Administration Ondansetron HCl 4 mg 01/02/21 19:41 Ondansetron 4 Mg/2 Ml Inj IV Q3H PRN Nausea And Vomiting Potassium Chloride 40 meq 01/04/21 09:17 Potassium Chloride 20 Meq Packet FEEDTUBE 01/04/21 09:18 ONCE ONE Sodium Chloride 10 ml 01/02/21 22:00 01/04/21 09:04 Sodium Chloride 0.9% 10 Ml Flush Syringe IV 10 ml BID KATELYNN Administration Sodium Chloride 10 ml 01/02/21 19:41 Sodium Chloride 0.9% 10 Ml Flush Syringe IV PRN PRN LINE FLUSH Nutrition/Malnutrition Assess - Dietary Evaluation Nutrition/Malnutrition Findings: Nutrition Notes Start: 01/03/21 10:54 Freq: Status: Active Protocol: Document 01/03/21 10:54 JAMES (Rec: 01/03/21 11:09 CHAVOALL [id number]) Nutrition Notes Need for Assessment generated from: MD Order,Education Initial or Follow up Assessment Other Pertinent Diagnosis Acute pancreatitis, EtOH dependence, acute gastritis, GERD Current Diet NPO Labs/Tests Na 136 Mg 2.4 Amylase 251 Lipase 466 (was 683 yesterday) Pertinent Medications D5NS at 100ml/hr, Pepcid Height 6 ft Weight 68.039 kg [place] Body Weight (kg) 80.90 BMI 20.3 Weight change and time frame Pt with a 10# wt loss x 3 months (6.25% wt loss) Weight Status Underweight Subjective/Other Information RD consulted for diet education. RD assessed pt during a previous admission () for malnutrition risk; at this time, pt exhibited temporal wasting and subcutaneous fat loss. 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 CT of abdomen revealed acute pancreatitis and (L) inguinal hernia. Pt with hx of recurrent pancreatitis. Pt on CIWA protocol. Burn Absent Trauma Absent GI Symptoms Nausea Minimum of two criteria Yes Interpretation of Weight Loss (severe) >5% in 1 month Body Fat Depletion Moderate depletion (severe) Muscle Mass Moderate Depletion (severe) Protein-Calorie Malnutrition Severe #1 Nutrition Diagnosis Malnutrition Etiology chronic illness (i.e., EtOH dependence, recurrent pancreatitis) As Evidenced by Signs and Symptoms pt with unintentional 6.25% wt loss x 3 months, BMI <22, muscle wasting, fat loss Is patient on ventilator? No Is Patient Ambulatory and/or Out of Bed Yes REE-([facility]-ambulatory/OOB) [ [id number] [id number]] Calculation Used for Recommendations [facility] Additional Notes Pro needs 1.2-1.5g/k-102g /day Fluid needs 1ml/kcal Nutrition Intervention Change Diet Order: Advance diet when medically feasible Goal #1 Diet advancement to meet nutrient needs Anticipated Discharge Needs: Low-fat diet; 6 small meals daily; ONS 1-2 times daily for wt maintenance Follow-Up By: 01/05/21 Additional Comments F/U: diet advancement, pancreatitis diet education
[2021-01-04] MEDS ORDERED: POTASSIUM CHLORIDE 20 MEQ PACKET FEEDTUBE ONE (10:00)
[2021-01-04] MEDS: D5W/0.9% NACL 1,000 ML IV SCH ×2 (10:57→20:42)
[2021-01-05] MEDS: HYDROmorphone 1 MG/1 ML INJ IV PRN ×2 (00:20→16:39)
[2021-01-05] MEDS: FAMOTIDINE 20 MG/2 ML INJ IV SCH ×3 (00:23→22:49)
[2021-01-05] MEDS: LORazepam 2 MG/ML VIAL IV PRN ×2 (04:12→22:49)
[2021-01-05] MEDS: D5W/0.9% NACL 1,000 ML IV SCH ×2 (07:09→16:42)
[2021-01-05] MEDS: NICOTINE 14 MG/24 HR PATCH TD SCH (11:01)
--- NOTE | 2021-01-05 14:06 | Progress Note ---
Assessment and Plan Assessment and plan: (1) Acute pancreatitis Current Visit: Yes Status: Acute Qualifiers: Pancreatitis type: alcohol induced Acute pancreatitis complication: no infection or necrosis Qualified Code(s): K85.20 - Alcohol induced acute pancreatitis without necrosis or infection Plan to address problem: CT abdomen and lipase consistent with pancreatitis Lipase is 683 Amylase was not done Probably EtOH induced Patient is regular EtOH dependent Drinks about 6 packs a day of beer.. We will keep for now for now the patient n.p.o. IV fluids for now (2) EtOH dependence Current Visit: Yes Status: Chronic Qualifiers: Substance use status: uncomplicated Qualified Code(s): F10.20 - Alcohol dependence, uncomplicated Plan to address problem: Patient initiated on CIWA protocol Banana bag initiated (3) Acute gastritis Current Visit: Yes Status: Acute Qualifiers: Gastritis type: alcoholic Plan to address problem: IV famotidine 20 mg twice a day (4) Macrocytosis Current Visit: Yes Status: Chronic Plan to address problem: Check folic acid and B12 level (5) Acute dehydration Current Visit: No Status: Acute Plan to address problem: IV fluids for now (6) Nicotine dependence Current Visit: Yes Status: Chronic Qualifiers: Nicotine product type: cigarettes Plan to address problem: Patient counseled about stopping smoking Patient initiated on NicoDerm patch (7) Hyponatremia Current Visit: Yes Status: Acute Plan to address problem: IV normal saline for now (8) DVT prophylaxis Current Visit: Yes Status: Acute Plan to address problem: On heparin and GI prophylaxis 01/03/2021 -Acute pancreatitis; pain control. Bowel rest, symptomatic management. -Lipase level is trending down -We will resume with clear liquid diet once abdominal pain is getting better -Extensively counseled about cessation of alcohol 01/04/2021 -Patient started on clear liquid diet, will advance as tolerated -Pain control -Replete hypokalemia 01/05/2021 -Lipase level is trending down -Patient is complaining abdominal pain 7 out of 10 intensity and continue medications. -Advance diet -Discharge in a.m. History Interval history: Patient was seen and evaluated this morning Patient admitted for acute pancreatitis Patient said his abdominal pain is 7 out of 10 No nausea or vomiting Hospitalist Physical - Physical exam Narrative exam: Not in cardiopulmonary distress. The patient appeared well nourished and normally developed. Vital signs as documented. Head exam is unremarkable. No scleral icterus . Neck is without jugular venous distension, thyromegaly, or carotid bruits. Lungs are clear to auscultation. Cardiac exam reveals regular rate and Rhythm. Abdominal exam reveals tenderness in the right upper quadrant area Extremities are nonedematous and both femoral and pedal pulses are normal. 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 - Constitutional Vitals: Temp Pulse Resp BP Pulse Ox 98.9 F 97 H 16 158/102 99 01/05/21 10:55 01/05/21 10:55 01/05/21 10:55 01/05/21 11:00 01/05/21 10:55 General appearance: Present: no acute distress, well-nourished Results - Labs CBC & Chem 7: 01/04/21 04:07 01/04/21 04:07 Labs: Laboratory Last Values WBC 3.3 K/mm3 (4.5-11.0) L 01/04/21 04:07 RBC 3.61 M/mm3 (3.65-5.03) L 01/04/21 04:07 Hgb 13.8 gm/dl (11.8-15.2) 01/04/21 04:07 Hct 39.9 % (35.5-45.6) 01/04/21 04:07 MCV 110 fl (84-94) H 01/04/21 04:07 MCH 38 pg (28-32) H 01/04/21 04:07 MCHC 35 % (32-34) H 01/04/21 04:07 RDW 17.7 % (13.2-15.2) H 01/04/21 04:07 Plt Count 154 K/mm3 (140-440) 01/04/21 04:07 Lymph % (Auto) 18.6 % (13.4-35.0) 01/04/21 04:07 [place] % (Auto) 8.8 % (0.0-7.3) H 01/04/21 04:07 Eos % (Auto) 6.3 % (0.0-4.3) H 01/04/21 04:07 Baso % (Auto) 0.3 % (0.0-1.8) 01/04/21 04:07 Lymph # (Auto) 0.6 K/mm3 (1.2-5.4) L 01/04/21 04:07 [place] # (Auto) 0.3 K/mm3 (0.0-0.8) 01/04/21 04:07 Eos # (Auto) 0.2 K/mm3 (0.0-0.4) 01/04/21 04:07 Baso # (Auto) 0.0 K/mm3 (0.0-0.1) 01/04/21 04:07 Seg Neutrophils % 66.0 % (40.0-70.0) 01/04/21 04:07 Seg Neutrophils # 2.2 K/mm3 (1.8-7.7) 01/04/21 04:07 Sodium 134 mmol/L (137-145) L 01/04/21 04:07 Potassium 3.3 mmol/L (3.6-5.0) L 01/04/21 04:07 Chloride 99.2 mmol/L (98-107) 01/04/21 04:07 Carbon Dioxide 26 mmol/L (22-30) 01/04/21 04:07 Anion Gap 12 mmol/L 01/04/21 04:07 BUN 5 mg/dL (9-20) L 01/04/21 04:07 Creatinine 0.6 mg/dL (0.8-1.3) L 01/04/21 04:07 Estimated GFR > 60 ml/min 01/04/21 04:07 BUN/Creatinine Ratio 8 % 01/04/21 04:07 Glucose 89 mg/dL (75-100) 01/04/21 04:07 Hemoglobin A1c 4.9 % (4-6) 01/03/21 04:06 Calcium 8.6 mg/dL (8.4-10.2) 01/04/21 04:07 Magnesium 2.40 mg/dL (1.7-2.3) H 01/03/21 04:06 Total Bilirubin 0.80 mg/dL (0.1-1.2) 01/04/21 04:07 AST 30 units/L (5-40) 01/04/21 04:07 ALT 14 units/L (7-56) 01/04/21 04:07 Alkaline Phosphatase 74 units/L (35-129) 01/04/21 04:07 Total Protein 6.6 g/dL (6.3-8.2) 01/04/21 04:07 Albumin 3.5 g/dL (3.9-5) L 01/04/21 04:07 Albumin/Globulin Ratio 1.1 % 01/04/21 04:07 Amylase 251 units/L (27-131) H 01/03/21 04:06 Lipase 192 units/L (13-60) H 01/04/21 04:07 Urine Color Yellow (Yellow) 01/02/21 20:54 Urine Turbidity Clear (Clear) 01/02/21 20:54 Urine pH 6.0 (5.0-7.0) 01/02/21 20:54 Ur Specific [place] 1.050 (1.003-1.030) H 01/02/21 20:54 Urine Protein 30 mg/dl mg/dL (Negative) 01/02/21 20:54 Urine Glucose (UA) Neg mg/dL (Negative) 01/02/21 20:54 Urine Ketones 20 mg/dL (Negative) 01/02/21 20:54 Urine Blood Neg (Negative) 01/02/21 20:54 Urine Nitrite Neg (Negative) 01/02/21 20:54 Urine Bilirubin Neg (Negative) 01/02/21 20:54 Urine Urobilinogen 2.0 mg/dL (<2.0) 01/02/21 20:54 Ur Leukocyte Esterase Neg (Negative) 01/02/21 20:54 Urine WBC (Auto) < 1.0 /HPF (0.0-6.0) 01/02/21 20:54 Urine RBC (Auto) 1.0 /HPF (0.0-6.0) 01/02/21 20:54 U Epithel Cells (Auto) < 1.0 /HPF (0-13.0) 01/02/21 20:54 Urine Bacteria (Auto) 1+ /HPF (Negative) 01/02/21 20:54 Urine Mucus Few /HPF 01/02/21 20:54 Ron[place]illo/IV: Voiding Method Urinal Active Medications - Current Medications Current Medications: Generic Name Dose Route Start Last Admin Trade Name Freq PRN Reason Stop Dose Admin Acetaminophen 650 mg 01/02/21 19:41 Acetaminophen 325 Mg Tab PO Q4H PRN Pain MILD(1-3)/Fever >100.5/MILLER Famotidine 20 mg 01/02/21 22:00 01/05/21 10:04 Famotidine 20 Mg/2 Ml Inj IV 20 mg BID KATELYNN Administration Hydralazine HCl 10 mg 01/02/21 21:54 01/03/21 08:25 Hydralazine 20 Mg/1 Ml Inj IV 10 mg Q6HR PRN Administration Hypertension Hydromorphone HCl 1 mg 01/02/21 19:41 01/05/21 00:20 Hydromorphone 1 Mg/1 Ml Inj IV 1 mg Q3H PRN Administration Pain , Severe (7-10) Dextrose/Sodium Chloride 1,000 mls @ 100 mls/hr 01/02/21 20:00 01/05/21 07:09 D5ns IV 100 mls/hr DIRECT KATELYNN Administration Lorazepam 2 mg 01/03/21 11:30 01/05/21 04:12 Lorazepam 2 Mg/Ml Vial IV 2 mg Q1H PRN Administration CIWA-Ar 8-15 Lorazepam 4 mg 01/03/21 11:30 Lorazepam 2 Mg/Ml Vial IV Q15MIN PRN CIWA-Ar >25 Lorazepam 4 mg 01/03/21 11:30 Lorazepam 2 Mg/Ml Vial IV Q1H PRN CIWA-Ar 16-25 Metoclopramide HCl 10 mg 01/02/21 19:41 Metoclopramide 10 Mg/2 Ml Inj IV Q6H PRN Nausea And Vomiting Morphine Sulfate 2 mg 01/02/21 19:41 Morphine 2 Mg/1 Ml Inj IV Q4H PRN Pain, Moderate (4-6) Nicotine 14 mg 01/02/21 20:00 01/05/21 11:01 Nicotine 14 Mg/24 Hr Patch TD 14 mg DAILY KATELYNN Administration Ondansetron HCl 4 mg 01/02/21 19:41 Ondansetron 4 Mg/2 Ml Inj IV Q3H PRN Nausea And Vomiting Sodium Chloride 10 ml 01/02/21 22:00 01/05/21 13:03 Sodium Chloride 0.9% 10 Ml Flush Syringe IV 10 ml BID KATELYNN Administration Sodium Chloride 10 ml 01/02/21 19:41 Sodium Chloride 0.9% 10 Ml Flush Syringe IV PRN PRN LINE FLUSH Nutrition/Malnutrition Assess - Dietary Evaluation Nutrition/Malnutrition Findings: Nutrition Notes Start: 01/03/21 10:54 Freq: Status: Active Protocol: Document 01/05/21 11:30 NHALL (Rec: 01/05/21 11:31 JAMES [id number]) Nutrition Notes Initial or Follow up Brief Note Current Diet Cl liq Subjective/Other Information Diet advanced yesterday for lunch. Pt unavailable for interview. Nutrition Intervention Follow-Up By: 01/08/21 Additional Comments F/U: PO tolerance, diet advancement, need for pancreatitis diet education
[2021-01-05] MEDS: hydrALAZINE 20 MG/1 ML INJ IV PRN (22:49)
[2021-01-06] MEDS: LORazepam 2 MG/ML VIAL IV PRN ×3 (01:36→22:18)
[2021-01-06] MEDS ORDERED: ZIPRASIDONE MESYLATE 20 MG VIAL IM ONE (03:50)
[2021-01-06] MEDS ORDERED: WATER FOR INJ Sterile (PF) 10 ML ONE (03:51)
--- NOTE | 2021-01-06 08:32 | Progress Note ---
Assessment and Plan Assessment and plan: (1) Acute pancreatitis Current Visit: Yes Status: Acute Qualifiers: Pancreatitis type: alcohol induced Acute pancreatitis complication: no infection or necrosis Qualified Code(s): K85.20 - Alcohol induced acute pancreatitis without necrosis or infection Plan to address problem: CT abdomen and lipase consistent with pancreatitis Lipase is 683 Amylase was not done Probably EtOH induced Patient is regular EtOH dependent Drinks about 6 packs a day of beer.. We will keep for now for now the patient n.p.o. IV fluids for now (2) EtOH dependence Current Visit: Yes Status: Chronic Qualifiers: Substance use status: uncomplicated Qualified Code(s): F10.20 - Alcohol dependence, uncomplicated Plan to address problem: Patient initiated on CIWA protocol Banana bag initiated (3) Acute gastritis Current Visit: Yes Status: Acute Qualifiers: Gastritis type: alcoholic Plan to address problem: IV famotidine 20 mg twice a day (4) Macrocytosis Current Visit: Yes Status: Chronic Plan to address problem: Check folic acid and B12 level (5) Acute dehydration Current Visit: No Status: Acute Plan to address problem: IV fluids for now (6) Nicotine dependence Current Visit: Yes Status: Chronic Qualifiers: Nicotine product type: cigarettes Plan to address problem: Patient counseled about stopping smoking Patient initiated on NicoDerm patch (7) Hyponatremia Current Visit: Yes Status: Acute Plan to address problem: IV normal saline for now (8) DVT prophylaxis Current Visit: Yes Status: Acute Plan to address problem: On heparin and GI prophylaxis 01/03/2021 -Acute pancreatitis; pain control. Bowel rest, symptomatic management. -Lipase level is trending down -We will resume with clear liquid diet once abdominal pain is getting better -Extensively counseled about cessation of alcohol 01/04/2021 -Patient started on clear liquid diet, will advance as tolerated -Pain control -Replete hypokalemia 01/05/2021 -Lipase level is trending down -Patient is complaining abdominal pain 7 out of 10 intensity and continue medications. -Advance diet -Discharge in a.m. 01/06: Disoriented this morning. Likely secondary to Geodon given versus withdrawal symptoms from alcohol. We will continue to monitor. Still with pain, BP elevated likely secondary to pain, History Interval history: Patient was seen and evaluated this morning Patient admitted for acute pancreatitis Lethargic this morning per nursing staff patient was agitated throughout the night and received Geodon. No nausea or vomiting Hospitalist Physical - Physical exam Narrative exam: Not in cardiopulmonary distress. The patient appeared well nourished and normally developed very lethargic. Vital signs as documented. Head exam is unremarkable. No scleral icterus . Neck is without jugular venous distension, thyromegaly, or carotid bruits. Lungs are clear to auscultation. Cardiac exam reveals regular rate and Rhythm. Abdominal exam reveals tenderness in the right upper quadrant area Extremities are nonedematous and both femoral and pedal pulses are normal. 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 Oriented x2. No focal weakness. - Constitutional Vitals: Temp Pulse Resp BP Pulse Ox 98.5 F 90 18 160/117 100 01/05/21 20:01 01/05/21 22:49 01/05/21 20:01 01/05/21 22:49 01/05/21 20:01 General appearance: Present: no acute distress, well-nourished Results - Labs CBC & Chem 7: 01/04/21 04:07 01/04/21 04:07 Labs: Laboratory Last Values WBC 3.3 K/mm3 (4.5-11.0) L 01/04/21 04:07 RBC 3.61 M/mm3 (3.65-5.03) L 01/04/21 04:07 Hgb 13.8 gm/dl (11.8-15.2) 01/04/21 04:07 Hct 39.9 % (35.5-45.6) 01/04/21 04:07 MCV 110 fl (84-94) H 01/04/21 04:07 MCH 38 pg (28-32) H 01/04/21 04:07 MCHC 35 % (32-34) H 01/04/21 04:07 RDW 17.7 % (13.2-15.2) H 01/04/21 04:07 Plt Count 154 K/mm3 (140-440) 01/04/21 04:07 Lymph % (Auto) 18.6 % (13.4-35.0) 01/04/21 04:07 [place] % (Auto) 8.8 % (0.0-7.3) H 01/04/21 04:07 Eos % (Auto) 6.3 % (0.0-4.3) H 01/04/21 04:07 Baso % (Auto) 0.3 % (0.0-1.8) 01/04/21 04:07 Lymph # (Auto) 0.6 K/mm3 (1.2-5.4) L 01/04/21 04:07 [place] # (Auto) 0.3 K/mm3 (0.0-0.8) 01/04/21 04:07 Eos # (Auto) 0.2 K/mm3 (0.0-0.4) 01/04/21 04:07 Baso # (Auto) 0.0 K/mm3 (0.0-0.1) 01/04/21 04:07 Seg Neutrophils % 66.0 % (40.0-70.0) 01/04/21 04:07 Seg Neutrophils # 2.2 K/mm3 (1.8-7.7) 01/04/21 04:07 Sodium 134 mmol/L (137-145) L 01/04/21 04:07 Potassium 3.3 mmol/L (3.6-5.0) L 01/04/21 04:07 Chloride 99.2 mmol/L (98-107) 01/04/21 04:07 Carbon Dioxide 26 mmol/L (22-30) 01/04/21 04:07 Anion Gap 12 mmol/L 01/04/21 04:07 BUN 5 mg/dL (9-20) L 01/04/21 04:07 Creatinine 0.6 mg/dL (0.8-1.3) L 01/04/21 04:07 Estimated GFR > 60 ml/min 01/04/21 04:07 BUN/Creatinine Ratio 8 % 01/04/21 04:07 Glucose 89 mg/dL (75-100) 01/04/21 04:07 Hemoglobin A1c 4.9 % (4-6) 01/03/21 04:06 Calcium 8.6 mg/dL (8.4-10.2) 01/04/21 04:07 Magnesium 2.40 mg/dL (1.7-2.3) H 01/03/21 04:06 Total Bilirubin 0.80 mg/dL (0.1-1.2) 01/04/21 04:07 AST 30 units/L (5-40) 01/04/21 04:07 ALT 14 units/L (7-56) 01/04/21 04:07 Alkaline Phosphatase 74 units/L (35-129) 01/04/21 04:07 Total Protein 6.6 g/dL (6.3-8.2) 01/04/21 04:07 Albumin 3.5 g/dL (3.9-5) L 01/04/21 04:07 Albumin/Globulin Ratio 1.1 % 01/04/21 04:07 Amylase 251 units/L (27-131) H 01/03/21 04:06 Lipase 192 units/L (13-60) H 01/04/21 04:07 Urine Color Yellow (Yellow) 01/02/21 20:54 Urine Turbidity Clear (Clear) 01/02/21 20:54 Urine pH 6.0 (5.0-7.0) 01/02/21 20:54 Ur Specific [place] 1.050 (1.003-1.030) H 01/02/21 20:54 Urine Protein 30 mg/dl mg/dL (Negative) 01/02/21 20:54 Urine Glucose (UA) Neg mg/dL (Negative) 01/02/21 20:54 Urine Ketones 20 mg/dL (Negative) 01/02/21 20:54 Urine Blood Neg (Negative) 01/02/21 20:54 Urine Nitrite Neg (Negative) 01/02/21 20:54 Urine Bilirubin Neg (Negative) 01/02/21 20:54 Urine Urobilinogen 2.0 mg/dL (<2.0) 01/02/21 20:54 Ur Leukocyte Esterase Neg (Negative) 01/02/21 20:54 Urine WBC (Auto) < 1.0 /HPF (0.0-6.0) 01/02/21 20:54 Urine RBC (Auto) 1.0 /HPF (0.0-6.0) 01/02/21 20:54 U Epithel Cells (Auto) < 1.0 /HPF (0-13.0) 01/02/21 20:54 Urine Bacteria (Auto) 1+ /HPF (Negative) 01/02/21 20:54 Urine Mucus Few /HPF 01/02/21 20:54 Ronquillo/IV: Voiding Method Urinal Active Medications - Current Medications Current Medications: Generic Name Dose Route Start Last Admin Trade Name Freq PRN Reason Stop Dose Admin Acetaminophen 650 mg 01/02/21 19:41 Acetaminophen 325 Mg Tab PO Q4H PRN Pain MILD(1-3)/Fever >100.5/MILLER Famotidine 20 mg 01/02/21 22:00 01/05/21 22:49 Famotidine 20 Mg/2 Ml Inj IV 20 mg BID KATELYNN Administration Hydralazine HCl 10 mg 01/02/21 21:54 01/05/21 22:49 Hydralazine 20 Mg/1 Ml Inj IV 10 mg Q6HR PRN Administration Hypertension Hydromorphone HCl 1 mg 01/02/21 19:41 01/05/21 16:39 Hydromorphone 1 Mg/1 Ml Inj IV 1 mg Q3H PRN Administration Pain , Severe (7-10) Dextrose/Sodium Chloride 1,000 mls @ 100 mls/hr 01/02/21 20:00 01/05/21 16:42 D5ns IV 100 mls/hr DIRECT KATELYNN Administration Lorazepam 2 mg 01/03/21 11:30 01/06/21 02:44 Lorazepam 2 Mg/Ml Vial IV 2 mg Q1H PRN Administration CIWA-Ar 8-15 Lorazepam 4 mg 01/03/21 11:30 Lorazepam 2 Mg/Ml Vial IV Q15MIN PRN CIWA-Ar >25 Lorazepam 4 mg 01/03/21 11:30 01/06/21 03:50 Lorazepam 2 Mg/Ml Vial IV 4 mg Q1H PRN Administration CIWA-Ar 16-25 Metoclopramide HCl 10 mg 01/02/21 19:41 Metoclopramide 10 Mg/2 Ml Inj IV Q6H PRN Nausea And Vomiting Morphine Sulfate 2 mg 01/02/21 19:41 Morphine 2 Mg/1 Ml Inj IV Q4H PRN Pain, Moderate (4-6) Nicotine 14 mg 01/02/21 20:00 01/05/21 11:01 Nicotine 14 Mg/24 Hr Patch TD 14 mg DAILY KATELYNN Administration Ondansetron HCl 4 mg 01/02/21 19:41 Ondansetron 4 Mg/2 Ml Inj IV Q3H PRN Nausea And Vomiting Sodium Chloride 10 ml 01/02/21 22:00 01/05/21 22:50 Sodium Chloride 0.9% 10 Ml Flush Syringe IV 10 ml BID KATELYNN Administration Sodium Chloride 10 ml 01/02/21 19:41 Sodium Chloride 0.9% 10 Ml Flush Syringe IV PRN PRN LINE FLUSH Nutrition/Malnutrition Assess - Dietary Evaluation Nutrition/Malnutrition Findings: Nutrition Notes Start: 01/03/21 10:54 Freq: Status: Active Protocol: Document 01/05/21 11:30 JAMES (Rec: 01/05/21 11:31 [facility] [id number]) Nutrition Notes Initial or Follow up Brief Note Current Diet Cl liq Subjective/Other Information Diet advanced yesterday for lunch. Pt unavailable for interview. Nutrition Intervention Follow-Up By: 01/08/21 Additional Comments F/U: PO tolerance, diet advancement, need for pancreatitis diet education
[2021-01-06] MEDS: VALSARTAN 40 MG TAB PO SCH (11:25)
[2021-01-06] MEDS: FAMOTIDINE 20 MG/2 ML INJ IV SCH (11:34)
[2021-01-06] MEDS: NICOTINE 14 MG/24 HR PATCH TD SCH (14:34)
[2021-01-06] MEDS: HYDROmorphone 1 MG/1 ML INJ IV PRN ×2 (14:35→20:08)
[2021-01-06] MEDS: FAMOTIDINE 20 MG TAB PO SCH (22:13)
[2021-01-07] MEDS: LORazepam 2 MG/ML VIAL IV PRN ×3 (03:27→21:17)
[2021-01-07] MEDS: HYDROmorphone 1 MG/1 ML INJ IV PRN ×4 (03:28→22:09)
[2021-01-07] MEDS: VALSARTAN 40 MG TAB PO SCH ×3 (04:00→21:23)
[2021-01-07 04:58] LABS: Hematocrit 39.6 % (35.5-45.6); Hemoglobin 13.6 gm/dl (11.8-15.2); Mean Corpuscular HGB Conc 34 % (32-34); Mean Corpuscular Volume 109 fl (84-94); Platelet Count 190 K/mm3 (140-440); Red Blood Count 3.63 M/mm3 (3.65-5.03)
[2021-01-07 05:08] LABS: BUN/Creatinine Ratio 11; Blood Urea Nitrogen 9 mg/dL (9-20); Calcium 9.4 mg/dL (8.4-10.2); Hemolysis Index 3
[2021-01-07] MEDS: FAMOTIDINE 20 MG TAB PO SCH ×2 (08:02→21:13)
[2021-01-07] MEDS: NICOTINE 14 MG/24 HR PATCH TD SCH (09:55)
[2021-01-07] MEDS ORDERED: POTASSIUM CHLORIDE ER 20 MEQ TAB PO SCH (12:00)
--- NOTE | 2021-01-07 13:09 | XRay Report ---
LEFT KNEE 2 VIEWS INDICATION / CLINICAL INFORMATION: Left knee pain after fall. COMPARISON: None available. FINDINGS: BONES and JOINT(S): No acute fracture or subluxation. No significant arthritis. Internal fixation of the femur is unremarkable as seen. SOFT TISSUES: No significant abnormality. ADDITIONAL FINDINGS: None. IMPRESSION: 1. No acute findings. Signer Name: Brenden Vergara MD Signed: 01/07/2021 1:05 PM Workstation Name: [id number]
--- NOTE | 2021-01-07 13:50 | Progress Note ---
Assessment and Plan Assessment and plan: (1) Acute pancreatitis Current Visit: Yes Status: Acute Qualifiers: Pancreatitis type: alcohol induced Acute pancreatitis complication: no infection or necrosis Qualified Code(s): K85.20 - Alcohol induced acute pancreatitis without necrosis or infection Plan to address problem: CT abdomen and lipase consistent with pancreatitis Lipase is 683 Amylase was not done Probably EtOH induced Patient is regular EtOH dependent Drinks about 6 packs a day of beer.. We will keep for now for now the patient n.p.o. IV fluids for now (2) EtOH dependence Current Visit: Yes Status: Chronic Qualifiers: Substance use status: uncomplicated Qualified Code(s): F10.20 - Alcohol dependence, uncomplicated Plan to address problem: Patient initiated on CIWA protocol Banana bag initiated (3) Acute gastritis Current Visit: Yes Status: Acute Qualifiers: Gastritis type: alcoholic Plan to address problem: IV famotidine 20 mg twice a day (4) Macrocytosis Current Visit: Yes Status: Chronic Plan to address problem: Check folic acid and B12 level (5) Acute dehydration Current Visit: No Status: Acute Plan to address problem: IV fluids for now (6) Nicotine dependence Current Visit: Yes Status: Chronic Qualifiers: Nicotine product type: cigarettes Plan to address problem: Patient counseled about stopping smoking Patient initiated on NicoDerm patch (7) Hyponatremia Current Visit: Yes Status: Acute Plan to address problem: IV normal saline for now (8) DVT prophylaxis Current Visit: Yes Status: Acute Plan to address problem: On heparin and GI prophylaxis 01/03/2021 -Acute pancreatitis; pain control. Bowel rest, symptomatic management. -Lipase level is trending down -We will resume with clear liquid diet once abdominal pain is getting better -Extensively counseled about cessation of alcohol 01/04/2021 -Patient started on clear liquid diet, will advance as tolerated -Pain control -Replete hypokalemia 01/05/2021 -Lipase level is trending down -Patient is complaining abdominal pain 7 out of 10 intensity and continue medications. -Advance diet -Discharge in a.m. 01/06: Disoriented this morning. Likely secondary to Geodon given versus withdrawal symptoms from alcohol. We will continue to monitor. Still with pain, BP elevated likely secondary to pain 01/07: Patient seen and examined, still with withdrawal symptoms, at this time had a fall this morning. will obtain xray of the knee. PT/OT eval and anticipate discharge in am. History Interval history: Patient was seen and evaluated this morning Patient admitted for acute pancreatitis Lethargic this morning per nursing staff patient was agitated throughout the night and received Geodon. No nausea or vomiting Hospitalist Physical - Physical exam Narrative exam: Not in cardiopulmonary distress. The patient appeared well nourished and normally developed very lethargic. Vital signs as documented. Head exam is unremarkable. No scleral icterus . Neck is without jugular venous distension, thyromegaly, or carotid bruits. Lungs are clear to auscultation. Cardiac exam reveals regular rate and Rhythm. Abdominal exam reveals tenderness in the right upper quadrant area Extremities are nonedematous and both femoral and pedal pulses are normal. 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 Oriented x2. No focal weakness. - Constitutional Vitals: Temp Pulse Resp BP Pulse Ox 98.3 F 88 18 122/85 97 01/07/21 11:12 01/07/21 11:12 01/07/21 11:12 01/07/21 11:12 01/07/21 11:12 General appearance: Present: no acute distress, well-nourished Results - Labs CBC & Chem 7: 01/07/21 04:04 01/07/21 04:04 Labs: Laboratory Last Values WBC 3.1 K/mm3 (4.5-11.0) L 01/07/21 04:04 RBC 3.63 M/mm3 (3.65-5.03) L 01/07/21 04:04 Hgb 13.6 gm/dl (11.8-15.2) 01/07/21 04:04 Hct 39.6 % (35.5-45.6) 01/07/21 04:04 MCV 109 fl (84-94) H 01/07/21 04:04 MCH 38 pg (28-32) H 01/07/21 04:04 MCHC 34 % (32-34) 01/07/21 04:04 RDW 17.0 % (13.2-15.2) H 01/07/21 04:04 Plt Count 190 K/mm3 (140-440) 01/07/21 04:04 Lymph % (Auto) 18.6 % (13.4-35.0) 01/04/21 04:07 [place] % (Auto) 8.8 % (0.0-7.3) H 01/04/21 04:07 Eos % (Auto) 6.3 % (0.0-4.3) H 01/04/21 04:07 Baso % (Auto) 0.3 % (0.0-1.8) 01/04/21 04:07 Lymph # (Auto) 0.6 K/mm3 (1.2-5.4) L 01/04/21 04:07 [place] # (Auto) 0.3 K/mm3 (0.0-0.8) 01/04/21 04:07 Eos # (Auto) 0.2 K/mm3 (0.0-0.4) 01/04/21 04:07 Baso # (Auto) 0.0 K/mm3 (0.0-0.1) 01/04/21 04:07 Seg Neutrophils % 66.0 % (40.0-70.0) 01/04/21 04:07 Seg Neutrophils # 2.2 K/mm3 (1.8-7.7) 01/04/21 04:07 Sodium 137 mmol/L (137-145) 01/07/21 04:04 Potassium 3.1 mmol/L (3.6-5.0) L 01/07/21 04:04 Chloride 99.8 mmol/L (98-107) 01/07/21 04:04 Carbon Dioxide 27 mmol/L (22-30) 01/07/21 04:04 Anion Gap 13 mmol/L 01/07/21 04:04 BUN 9 mg/dL (9-20) 01/07/21 04:04 Creatinine 0.8 mg/dL (0.8-1.3) 01/07/21 04:04 Estimated GFR > 60 ml/min 01/07/21 04:04 BUN/Creatinine Ratio 11 % 01/07/21 04:04 Glucose 85 mg/dL (75-100) 01/07/21 04:04 Hemoglobin A1c 4.9 % (4-6) 01/03/21 04:06 Calcium 9.4 mg/dL (8.4-10.2) 01/07/21 04:04 Magnesium 2.40 mg/dL (1.7-2.3) H 01/03/21 04:06 Total Bilirubin 0.80 mg/dL (0.1-1.2) 01/04/21 04:07 AST 30 units/L (5-40) 01/04/21 04:07 ALT 14 units/L (7-56) 01/04/21 04:07 Alkaline Phosphatase 74 units/L (35-129) 01/04/21 04:07 Total Protein 6.6 g/dL (6.3-8.2) 01/04/21 04:07 Albumin 3.5 g/dL (3.9-5) L 01/04/21 04:07 Albumin/Globulin Ratio 1.1 % 01/04/21 04:07 Amylase 251 units/L (27-131) H 01/03/21 04:06 Lipase 192 units/L (13-60) H 01/04/21 04:07 Urine Color Yellow (Yellow) 01/02/21 20:54 Urine Turbidity Clear (Clear) 01/02/21 20:54 Urine pH 6.0 (5.0-7.0) 01/02/21 20:54 Ur Specific [place] 1.050 (1.003-1.030) H 01/02/21 20:54 Urine Protein 30 mg/dl mg/dL (Negative) 01/02/21 20:54 Urine Glucose (UA) Neg mg/dL (Negative) 01/02/21 20:54 Urine Ketones 20 mg/dL (Negative) 01/02/21 20:54 Urine Blood Neg (Negative) 01/02/21 20:54 Urine Nitrite Neg (Negative) 01/02/21 20:54 Urine Bilirubin Neg (Negative) 01/02/21 20:54 Urine Urobilinogen 2.0 mg/dL (<2.0) 01/02/21 20:54 Ur Leukocyte Esterase Neg (Negative) 01/02/21 20:54 Urine WBC (Auto) < 1.0 /HPF (0.0-6.0) 01/02/21 20:54 Urine RBC (Auto) 1.0 /HPF (0.0-6.0) 01/02/21 20:54 U Epithel Cells (Auto) < 1.0 /HPF (0-13.0) 01/02/21 20:54 Urine Bacteria (Auto) 1+ /HPF (Negative) 01/02/21 20:54 Urine Mucus Few /HPF 01/02/21 20:54 Ronquillo/IV: Voiding Method Condom Catheter Active Medications - Current Medications Current Medications: Generic Name Dose Route Start Last Admin Trade Name Freq PRN Reason Stop Dose Admin Acetaminophen 650 mg 01/02/21 19:41 Acetaminophen 325 Mg Tab PO Q4H PRN Pain MILD(1-3)/Fever >100.5/MILLER Famotidine 20 mg 01/06/21 22:00 01/07/21 08:02 Famotidine 20 Mg Tab PO 20 mg BID KATELYNN Administration Hydralazine HCl 10 mg 01/02/21 21:54 01/05/21 22:49 Hydralazine 20 Mg/1 Ml Inj IV 10 mg Q6HR PRN Administration Hypertension Hydromorphone HCl 1 mg 01/02/21 19:41 01/07/21 08:32 Hydromorphone 1 Mg/1 Ml Inj IV 1 mg Q3H PRN Administration Pain , Severe (7-10) Dextrose/Sodium Chloride 1,000 mls @ 100 mls/hr 01/02/21 20:00 01/05/21 16:42 D5ns IV 100 mls/hr DIRECT KATELYNN Administration Lorazepam 2 mg 01/03/21 11:30 01/07/21 09:40 Lorazepam 2 Mg/Ml Vial IV 2 mg Q1H PRN Administration CIWA-Ar 8-15 Lorazepam 4 mg 01/03/21 11:30 Lorazepam 2 Mg/Ml Vial IV Q15MIN PRN CIWA-Ar >25 Lorazepam 4 mg 01/03/21 11:30 01/06/21 03:50 Lorazepam 2 Mg/Ml Vial IV 4 mg Q1H PRN Administration CIWA-Ar 16-25 Metoclopramide HCl 10 mg 01/02/21 19:41 Metoclopramide 10 Mg/2 Ml Inj IV Q6H PRN Nausea And Vomiting Morphine Sulfate 2 mg 01/02/21 19:41 Morphine 2 Mg/1 Ml Inj IV Q4H PRN Pain, Moderate (4-6) Nicotine 14 mg 01/02/21 20:00 01/07/21 09:55 Nicotine 14 Mg/24 Hr Patch TD 14 mg DAILY KATELYNN Administration Ondansetron HCl 4 mg 01/02/21 19:41 Ondansetron 4 Mg/2 Ml Inj IV Q3H PRN Nausea And Vomiting Potassium Chloride 40 meq 01/07/21 12:00 Potassium Chloride Er 20 Meq Tab PO 01/07/21 15:00 ONCE KATELYNN Sodium Chloride 10 ml 01/02/21 22:00 01/07/21 08:02 Sodium Chloride 0.9% 10 Ml Flush Syringe IV 10 ml BID KATELYNN Administration Sodium Chloride 10 ml 01/02/21 19:41 Sodium Chloride 0.9% 10 Ml Flush Syringe IV PRN PRN LINE FLUSH Valsartan 80 mg 01/06/21 10:00 01/07/21 08:01 Valsartan 40 Mg Tab PO 80 mg BID KATELYNN Administration Nutrition/Malnutrition Assess - Dietary Evaluation Nutrition/Malnutrition Findings: Nutrition Notes Start: 01/03/21 10:54 Freq: Status: Active Protocol: Document 01/05/21 11:30 JAMES (Rec: 01/05/21 11:31 JAMES [id number]) Nutrition Notes Initial or Follow up Brief Note Current Diet Cl liq Subjective/Other Information Diet advanced yesterday for lunch. Pt unavailable for interview. Nutrition Intervention Follow-Up By: 01/08/21 Additional Comments F/U: PO tolerance, diet advancement, need for pancreatitis diet education
[2021-01-07] MEDS ORDERED: POTASSIUM CHLORIDE ER 20 MEQ TAB PO ONE (21:52)
[2021-01-08] MEDS: HYDROmorphone 1 MG/1 ML INJ IV PRN ×4 (06:03→21:26)
[2021-01-08] MEDS: LORazepam 2 MG/ML VIAL IV PRN ×3 (06:17→20:57)
[2021-01-08] MEDS: FAMOTIDINE 20 MG TAB PO SCH ×2 (10:18→21:05)
[2021-01-08] MEDS: VALSARTAN 40 MG TAB PO SCH ×2 (10:18→21:04)
[2021-01-08] MEDS: NICOTINE 14 MG/24 HR PATCH TD SCH (10:19)
--- NOTE | 2021-01-08 12:20 | Progress Note ---
Assessment and Plan Assessment and plan: (1) Acute pancreatitis Current Visit: Yes Status: Acute Qualifiers: Pancreatitis type: alcohol induced Acute pancreatitis complication: no infection or necrosis Qualified Code(s): K85.20 - Alcohol induced acute pancreatitis without necrosis or infection Plan to address problem: CT abdomen and lipase consistent with pancreatitis Lipase is 683 Amylase was not done Probably EtOH induced Patient is regular EtOH dependent Drinks about 6 packs a day of beer.. We will keep for now for now the patient n.p.o. IV fluids for now (2) EtOH dependence with delirium tremens Current Visit: Yes Status: Chronic Qualifiers: Substance use status: uncomplicated Qualified Code(s): F10.20 - Alcohol dependence, uncomplicated Plan to address problem: Patient initiated on CIWA protocol Banana bag initiated (3) Acute gastritis Current Visit: Yes Status: Acute Qualifiers: Gastritis type: alcoholic Plan to address problem: IV famotidine 20 mg twice a day (4) Macrocytosis Current Visit: Yes Status: Chronic Plan to address problem: Check folic acid and B12 level (5) Acute dehydration Current Visit: No Status: Acute Plan to address problem: IV fluids for now (6) Nicotine dependence Current Visit: Yes Status: Chronic Qualifiers: Nicotine product type: cigarettes Plan to address problem: Patient counseled about stopping smoking Patient initiated on NicoDerm patch (7) Hyponatremia Current Visit: Yes Status: Acute Plan to address problem: IV normal saline for now (8) DVT prophylaxis Current Visit: Yes Status: Acute Plan to address problem: On heparin and GI prophylaxis 01/03/2021 -Acute pancreatitis; pain control. Bowel rest, symptomatic management. -Lipase level is trending down -We will resume with clear liquid diet once abdominal pain is getting better -Extensively counseled about cessation of alcohol 01/04/2021 -Patient started on clear liquid diet, will advance as tolerated -Pain control -Replete hypokalemia 01/05/2021 -Lipase level is trending down -Patient is complaining abdominal pain 7 out of 10 intensity and continue medications. -Advance diet -Discharge in a.m. 01/06: Disoriented this morning. Likely secondary to Geodon given versus withdrawal symptoms from alcohol. We will continue to monitor. Still with pain, BP elevated likely secondary to pain 01/07: Patient seen and examined, still with withdrawal symptoms, at this time had a fall this morning. will obtain xray of the knee. PT/OT eval . 01/08: Patient still on EtOH withdrawal with some delirium tremens received Ativan this morning. Awaiting for PT evaluation. Anticipate discharge tomorrow morning following PT recommendation. Nursing staff implemented fall precaution History Interval history: Patient was seen and evaluated this morning Patient admitted for acute pancreatitis Improved lethargy but still with agitation and unstable gait Hospitalist Physical - Physical exam Narrative exam: Not in cardiopulmonary distress. The patient appeared well nourished and normally developed lethargic but improving still tremulous Vital signs as documented. Head exam is unremarkable. No scleral icterus . Neck is without jugular venous distension, thyromegaly, or carotid bruits. Lungs are clear to auscultation. Cardiac exam reveals regular rate and Rhythm. Abdominal exam reveals tenderness in the right upper quadrant area Extremities are nonedematous and both femoral and pedal pulses are normal. CLIENT SERVICE ASSOCIATE: Awake but lethargic. Oriented x2. No focal weakness. - Constitutional Vitals: Temp Pulse Resp BP Pulse Ox 98.7 F 84 18 122/89 99 01/08/21 11:32 01/08/21 11:32 01/08/21 11:32 01/08/21 11:32 01/08/21 11:32 General appearance: Present: no acute distress, well-nourished Results - Labs CBC & Chem 7: 01/07/21 04:04 01/07/21 04:04 Labs: Laboratory Last Values WBC 3.1 K/mm3 (4.5-11.0) L 01/07/21 04:04 RBC 3.63 M/mm3 (3.65-5.03) L 01/07/21 04:04 Hgb 13.6 gm/dl (11.8-15.2) 01/07/21 04:04 Hct 39.6 % (35.5-45.6) 01/07/21 04:04 MCV 109 fl (84-94) H 01/07/21 04:04 MCH 38 pg (28-32) H 01/07/21 04:04 MCHC 34 % (32-34) 01/07/21 04:04 RDW 17.0 % (13.2-15.2) H 01/07/21 04:04 Plt Count 190 K/mm3 (140-440) 01/07/21 04:04 Lymph % (Auto) 18.6 % (13.4-35.0) 01/04/21 04:07 [place] % (Auto) 8.8 % (0.0-7.3) H 01/04/21 04:07 Eos % (Auto) 6.3 % (0.0-4.3) H 01/04/21 04:07 Baso % (Auto) 0.3 % (0.0-1.8) 01/04/21 04:07 Lymph # (Auto) 0.6 K/mm3 (1.2-5.4) L 01/04/21 04:07 [place] # (Auto) 0.3 K/mm3 (0.0-0.8) 01/04/21 04:07 Eos # (Auto) 0.2 K/mm3 (0.0-0.4) 01/04/21 04:07 Baso # (Auto) 0.0 K/mm3 (0.0-0.1) 01/04/21 04:07 Seg Neutrophils % 66.0 % (40.0-70.0) 01/04/21 04:07 Seg Neutrophils # 2.2 K/mm3 (1.8-7.7) 01/04/21 04:07 Sodium 137 mmol/L (137-145) 01/07/21 04:04 Potassium 3.1 mmol/L (3.6-5.0) L 01/07/21 04:04 Chloride 99.8 mmol/L (98-107) 01/07/21 04:04 Carbon Dioxide 27 mmol/L (22-30) 01/07/21 04:04 Anion Gap 13 mmol/L 01/07/21 04:04 BUN 9 mg/dL (9-20) 01/07/21 04:04 Creatinine 0.8 mg/dL (0.8-1.3) 01/07/21 04:04 Estimated GFR > 60 ml/min 01/07/21 04:04 BUN/Creatinine Ratio 11 % 01/07/21 04:04 Glucose 85 mg/dL (75-100) 01/07/21 04:04 Hemoglobin A1c 4.9 % (4-6) 01/03/21 04:06 Calcium 9.4 mg/dL (8.4-10.2) 01/07/21 04:04 Magnesium 2.40 mg/dL (1.7-2.3) H 01/03/21 04:06 Total Bilirubin 0.80 mg/dL (0.1-1.2) 01/04/21 04:07 AST 30 units/L (5-40) 01/04/21 04:07 ALT 14 units/L (7-56) 01/04/21 04:07 Alkaline Phosphatase 74 units/L (35-129) 01/04/21 04:07 Total Protein 6.6 g/dL (6.3-8.2) 01/04/21 04:07 Albumin 3.5 g/dL (3.9-5) L 01/04/21 04:07 Albumin/Globulin Ratio 1.1 % 01/04/21 04:07 Amylase 251 units/L (27-131) H 01/03/21 04:06 Lipase 192 units/L (13-60) H 01/04/21 04:07 Urine Color Yellow (Yellow) 01/02/21 20:54 Urine Turbidity Clear (Clear) 01/02/21 20:54 Urine pH 6.0 (5.0-7.0) 01/02/21 20:54 Ur Specific [place] 1.050 (1.003-1.030) H 01/02/21 20:54 Urine Protein 30 mg/dl mg/dL (Negative) 01/02/21 20:54 Urine Glucose (UA) Neg mg/dL (Negative) 01/02/21 20:54 Urine Ketones 20 mg/dL (Negative) 01/02/21 20:54 Urine Blood Neg (Negative) 01/02/21 20:54 Urine Nitrite Neg (Negative) 01/02/21 20:54 Urine Bilirubin Neg (Negative) 01/02/21 20:54 Urine Urobilinogen 2.0 mg/dL (<2.0) 01/02/21 20:54 Ur Leukocyte Esterase Neg (Negative) 01/02/21 20:54 Urine WBC (Auto) < 1.0 /HPF (0.0-6.0) 01/02/21 20:54 Urine RBC (Auto) 1.0 /HPF (0.0-6.0) 01/02/21 20:54 U Epithel Cells (Auto) < 1.0 /HPF (0-13.0) 01/02/21 20:54 Urine Bacteria (Auto) 1+ /HPF (Negative) 01/02/21 20:54 Urine Mucus Few /HPF 01/02/21 20:54 Ron[place]illo/IV: Voiding Method Urinal Active Medications - Current Medications Current Medications: Generic Name Dose Route Start Last Admin Trade Name Freq PRN Reason Stop Dose Admin Acetaminophen 650 mg 01/02/21 19:41 Acetaminophen 325 Mg Tab PO Q4H PRN Pain MILD(1-3)/Fever >100.5/MILLER Famotidine 20 mg 01/06/21 22:00 01/08/21 10:18 Famotidine 20 Mg Tab PO 20 mg BID KATELYNN Administration Hydralazine HCl 10 mg 01/02/21 21:54 01/05/21 22:49 Hydralazine 20 Mg/1 Ml Inj IV 10 mg Q6HR PRN Administration Hypertension Hydromorphone HCl 1 mg 01/02/21 19:41 01/08/21 10:26 Hydromorphone 1 Mg/1 Ml Inj IV 1 mg Q3H PRN Administration Pain , Severe (7-10) Dextrose/Sodium Chloride 1,000 mls @ 100 mls/hr 01/02/21 20:00 01/05/21 16:42 D5ns IV 100 mls/hr DIRECT KATELYNN Administration Lorazepam 2 mg 01/03/21 11:30 01/08/21 06:17 Lorazepam 2 Mg/Ml Vial IV 2 mg Q1H PRN Administration CIWA-Ar 8-15 Lorazepam 4 mg 01/03/21 11:30 01/08/21 06:17 Lorazepam 2 Mg/Ml Vial IV 4 mg Q15MIN PRN Administration CIWA-Ar >25 Lorazepam 4 mg 01/03/21 11:30 01/06/21 03:50 Lorazepam 2 Mg/Ml Vial IV 4 mg Q1H PRN Administration CIWA-Ar 16-25 Metoclopramide HCl 10 mg 01/02/21 19:41 Metoclopramide 10 Mg/2 Ml Inj IV Q6H PRN Nausea And Vomiting Morphine Sulfate 2 mg 01/02/21 19:41 Morphine 2 Mg/1 Ml Inj IV Q4H PRN Pain, Moderate (4-6) Nicotine 14 mg 01/02/21 20:00 01/08/21 10:19 Nicotine 14 Mg/24 Hr Patch TD 14 mg DAILY KATELYNN Administration Ondansetron HCl 4 mg 01/02/21 19:41 Ondansetron 4 Mg/2 Ml Inj IV Q3H PRN Nausea And Vomiting Sodium Chloride 10 ml 01/02/21 22:00 01/08/21 10:19 Sodium Chloride 0.9% 10 Ml Flush Syringe IV 10 ml BID KATELYNN Administration Sodium Chloride 10 ml 01/02/21 19:41 Sodium Chloride 0.9% 10 Ml Flush Syringe IV PRN PRN LINE FLUSH Valsartan 80 mg 01/06/21 10:00 01/08/21 10:18 Valsartan 40 Mg Tab PO 80 mg BID KATELYNN Administration Nutrition/Malnutrition Assess - Dietary Evaluation Nutrition/Malnutrition Findings: Nutrition Notes Start: 01/03/21 10:54 Freq: Status: Active Protocol: Document 01/05/21 11:30 JAMES (Rec: 01/05/21 11:31 JAMES [email or web address]) Nutrition Notes Initial or Follow up Brief Note Current Diet Cl liq Subjective/Other Information Diet advanced yesterday for lunch. Pt unavailable for interview. Nutrition Intervention Follow-Up By: 01/08/21 Additional Comments F/U: PO tolerance, diet advancement, need for pancreatitis diet education
[2021-01-09] MEDS: LORazepam 2 MG/ML VIAL IV PRN (03:55)
[2021-01-09] MEDS: HYDROmorphone 1 MG/1 ML INJ IV PRN ×2 (06:12→09:14)
[2021-01-09 07:16] VITALS: BP 135/98
[2021-01-09] MEDS: VALSARTAN 40 MG TAB PO SCH (09:14)
[2021-01-09] MEDS: NICOTINE 14 MG/24 HR PATCH TD SCH (09:14)
[2021-01-09] MEDS: FAMOTIDINE 20 MG TAB PO SCH (09:17)
[2021-01-09] MEDS ORDERED: POTASSIUM CHLORIDE ER 20 MEQ TAB PO NR (11:52)
--- NOTE | 2021-01-09 11:52 | Progress Note ---
Assessment and Plan Assessment and plan: (1) Acute pancreatitis Current Visit: Yes Status: Acute Qualifiers: Pancreatitis type: alcohol induced Acute pancreatitis complication: no infection or necrosis Qualified Code(s): K85.20 - Alcohol induced acute pancreatitis without necrosis or infection Plan to address problem: CT abdomen and lipase consistent with pancreatitis Lipase is 683 Amylase was not done Probably EtOH induced Patient is regular EtOH dependent Drinks about 6 packs a day of beer.. We will keep for now for now the patient n.p.o. IV fluids for now (2) EtOH dependence with delirium tremens Current Visit: Yes Status: Chronic Qualifiers: Substance use status: uncomplicated Qualified Code(s): F10.20 - Alcohol dependence, uncomplicated Plan to address problem: Patient initiated on CIWA protocol Banana bag initiated (3) Acute gastritis Current Visit: Yes Status: Acute Qualifiers: Gastritis type: alcoholic Plan to address problem: IV famotidine 20 mg twice a day (4) Macrocytosis Current Visit: Yes Status: Chronic Plan to address problem: Check folic acid and B12 level (5) Acute dehydration Current Visit: No Status: Acute Plan to address problem: IV fluids for now (6) Nicotine dependence Current Visit: Yes Status: Chronic Qualifiers: Nicotine product type: cigarettes Plan to address problem: Patient counseled about stopping smoking Patient initiated on NicoDerm patch (7) Hyponatremia Current Visit: Yes Status: Acute Plan to address problem: IV normal saline for now (8) DVT prophylaxis Current Visit: Yes Status: Acute Plan to address problem: On heparin and GI prophylaxis 01/03/2021 -Acute pancreatitis; pain control. Bowel rest, symptomatic management. -Lipase level is trending down -We will resume with clear liquid diet once abdominal pain is getting better -Extensively counseled about cessation of alcohol 01/04/2021 -Patient started on clear liquid diet, will advance as tolerated -Pain control -Replete hypokalemia 01/05/2021 -Lipase level is trending down -Patient is complaining abdominal pain 7 out of 10 intensity and continue med ications. -Advance diet -Discharge in a.m. 01/06: Disoriented this morning. Likely secondary to Geodon given versus withdrawal symptoms from alcohol. We will continue to monitor. Still with pain, BP elevated likely secondary to pain 01/07: Patient seen and examined, still with withdrawal symptoms, at this time had a fall this morning. will obtain xray of the knee. PT/OT eval . 01/08: Patient still on EtOH withdrawal with some delirium tremens received Ativan this morning. Awaiting for PT evaluation. Anticipate discharge tomorrow morning following PT recommendation. Nursing staff implemented fall precaution 01/09/21 patient is seen and examined. Patient is doing better. No sign symp gigi of withdrawal. Patient denied any abdominal pain. No nausea vomiting. Waiting for physical therapy evaluation. Discharge plan if cleared by PT. History Interval history: Patient is seen and examined Lab and medication reviewed. No abdominal pain no nausea vomiting. Hospitalist Physical - Constitutional Vitals: Temp Pulse Resp BP Pulse Ox 98.3 F 83 16 135/98 97 01/09/21 07:10 01/09/21 07:10 01/09/21 07:10 01/09/21 07:10 01/09/21 07:10 General appearance: Present: no acute distress, well-nourished Results - Labs CBC & Chem 7: 01/07/21 04:04 01/07/21 04:04 Labs: Laboratory Last Values WBC 3.1 K/mm3 (4.5-11.0) L 01/07/21 04:04 RBC 3.63 M/mm3 (3.65-5.03) L 01/07/21 04:04 Hgb 13.6 gm/dl (11.8-15.2) 01/07/21 04:04 Hct 39.6 % (35.5-45.6) 01/07/21 04:04 MCV 109 fl (84-94) H 01/07/21 04:04 MCH 38 pg (28-32) H 01/07/21 04:04 MCHC 34 % (32-34) 01/07/21 04:04 RDW 17.0 % (13.2-15.2) H 01/07/21 04:04 Plt Count 190 K/mm3 (140-440) 01/07/21 04:04 Lymph % (Auto) 18.6 % (13.4-35.0) 01/04/21 04:07 [place] % (Auto) 8.8 % (0.0-7.3) H 01/04/21 04:07 Eos % (Auto) 6.3 % (0.0-4.3) H 01/04/21 04:07 Baso % (Auto) 0.3 % (0.0-1.8) 01/04/21 04:07 Lymph # (Auto) 0.6 K/mm3 (1.2-5.4) L 01/04/21 04:07 [place] # (Auto) 0.3 K/mm3 (0.0-0.8) 01/04/21 04:07 Eos # (Auto) 0.2 K/mm3 (0.0-0.4) 01/04/21 04:07 Baso # (Auto) 0.0 K/mm3 (0.0-0.1) 01/04/21 04:07 Seg Neutrophils % 66.0 % (40.0-70.0) 01/04/21 04:07 Seg Neutrophils # 2.2 K/mm3 (1.8-7.7) 01/04/21 04:07 Sodium 137 mmol/L (137-145) 01/07/21 04:04 Potassium 3.1 mmol/L (3.6-5.0) L 01/07/21 04:04 Chloride 99.8 mmol/L (98-107) 01/07/21 04:04 Carbon Dioxide 27 mmol/L (22-30) 01/07/21 04:04 Anion Gap 13 mmol/L 01/07/21 04:04 BUN 9 mg/dL (9-20) 01/07/21 04:04 Creatinine 0.8 mg/dL (0.8-1.3) 01/07/21 04:04 Estimated GFR > 60 ml/min 01/07/21 04:04 BUN/Creatinine Ratio 11 % 01/07/21 04:04 Glucose 85 mg/dL (75-100) 01/07/21 04:04 Hemoglobin A1c 4.9 % (4-6) 01/03/21 04:06 Calcium 9.4 mg/dL (8.4-10.2) 01/07/21 04:04 Magnesium 2.40 mg/dL (1.7-2.3) H 01/03/21 04:06 Total Bilirubin 0.80 mg/dL (0.1-1.2) 01/04/21 04:07 AST 30 units/L (5-40) 01/04/21 04:07 ALT 14 units/L (7-56) 01/04/21 04:07 Alkaline Phosphatase 74 units/L (35-129) 01/04/21 04:07 Total Protein 6.6 g/dL (6.3-8.2) 01/04/21 04:07 Albumin 3.5 g/dL (3.9-5) L 01/04/21 04:07 Albumin/Globulin Ratio 1.1 % 01/04/21 04:07 Amylase 251 units/L (27-131) H 01/03/21 04:06 Lipase 192 units/L (13-60) H 01/04/21 04:07 Urine Color Yellow (Yellow) 01/02/21 20:54 Urine Turbidity Clear (Clear) 01/02/21 20:54 Urine pH 6.0 (5.0-7.0) 01/02/21 20:54 Ur Specific [place] 1.050 (1.003-1.030) H 01/02/21 20:54 Urine Protein 30 mg/dl mg/dL (Negative) 01/02/21 20:54 Urine Glucose (UA) Neg mg/dL (Negative) 01/02/21 20:54 Urine Ketones 20 mg/dL (Negative) 01/02/21 20:54 Urine Blood Neg (Negative) 01/02/21 20:54 Urine Nitrite Neg (Negative) 01/02/21 20:54 Urine Bilirubin Neg (Negative) 01/02/21 20:54 Urine Urobilinogen 2.0 mg/dL (<2.0) 01/02/21 20:54 Ur Leukocyte Esterase Neg (Negative) 01/02/21 20:54 Urine WBC (Auto) < 1.0 /HPF (0.0-6.0) 01/02/21 20:54 Urine RBC (Auto) 1.0 /HPF (0.0-6.0) 01/02/21 20:54 U Epithel Cells (Auto) < 1.0 /HPF (0-13.0) 01/02/21 20:54 Urine Bacteria (Auto) 1+ /HPF (Negative) 01/02/21 20:54 Urine Mucus Few /HPF 01/02/21 20:54 Ronquillo/IV: Voiding Method Urinal Active Medications - Current Medications Current Medications: Generic Name Dose Route Start Last Admin Trade Name Freq PRN Reason Stop Dose Admin Acetaminophen 650 mg 01/02/21 19:41 Acetaminophen 325 Mg Tab PO Q4H PRN Pain MILD(1-3)/Fever >100.5/MILLER Famotidine 20 mg 01/06/21 22:00 01/09/21 09:17 Famotidine 20 Mg Tab PO 20 mg BID KATELYNN Administration Hydralazine HCl 10 mg 01/02/21 21:54 01/05/21 22:49 Hydralazine 20 Mg/1 Ml Inj IV 10 mg Q6HR PRN Administration Hypertension Hydromorphone HCl 1 mg 01/02/21 19:41 01/09/21 09:14 Hydromorphone 1 Mg/1 Ml Inj IV 1 mg Q3H PRN Administration Pain , Severe (7-10) Dextrose/Sodium Chloride 1,000 mls @ 100 mls/hr 01/02/21 20:00 01/05/21 16:42 D5ns IV 100 mls/hr DIRECT KATELYNN Administration Lorazepam 2 mg 01/03/21 11:30 01/08/21 06:17 Lorazepam 2 Mg/Ml Vial IV 2 mg Q1H PRN Administration CIWA-Ar 8-15 Lorazepam 4 mg 01/03/21 11:30 01/09/21 03:55 Lorazepam 2 Mg/Ml Vial IV 4 mg Q15MIN PRN Administration CIWA-Ar >25 Lorazepam 4 mg 01/03/21 11:30 01/06/21 03:50 Lorazepam 2 Mg/Ml Vial IV 4 mg Q1H PRN Administration CIWA-Ar 16-25 Metoclopramide HCl 10 mg 01/02/21 19:41 Metoclopramide 10 Mg/2 Ml Inj IV Q6H PRN Nausea And Vomiting Morphine Sulfate 2 mg 01/02/21 19:41 Morphine 2 Mg/1 Ml Inj IV Q4H PRN Pain, Moderate (4-6) Nicotine 14 mg 01/02/21 20:00 01/09/21 09:14 Nicotine 14 Mg/24 Hr Patch TD 14 mg DAILY KATELYNN Administration Ondansetron HCl 4 mg 01/02/21 19:41 Ondansetron 4 Mg/2 Ml Inj IV Q3H PRN Nausea And Vomiting Sodium Chloride 10 ml 01/02/21 22:00 01/09/21 09:14 Sodium Chloride 0.9% 10 Ml Flush Syringe IV 10 ml BID KATELYNN Administration Sodium Chloride 10 ml 01/02/21 19:41 Sodium Chloride 0.9% 10 Ml Flush Syringe IV PRN PRN LINE FLUSH Valsartan 80 mg 01/06/21 10:00 01/09/21 09:14 Valsartan 40 Mg Tab PO 80 mg BID KATELYNN Administration Nutrition/Malnutrition Assess - Dietary Evaluation Nutrition/Malnutrition Findings: Nutrition Notes Start: 01/03/21 10:54 Freq: Status: Active Protocol: Document 01/08/21 14:19 (Rec: 01/08/21 14:23 [email or web address]) Nutrition Notes Need for Assessment generated from: Education Initial or Follow up Reassessment Other Pertinent Diagnosis Acute pancreatitis, EtOH dependence, acute gastritis, GERD Current Diet GI soft Labs/Tests Reviewed Pertinent Medications Reviewed Height 6 ft Weight 68.039 kg [place] Body Weight (kg) 80.90 BMI 20.3 Weight Status Underweight Subjective/Other Information FU for intakes and diet education. Pt eating 100% of meals. Pt unable to complete pancreatitis diet education but accepted handout. Percent of energy/protein needs met: 100%/100% Burn Absent Trauma Absent GI Symptoms None Current % PO Good (75-100%) Minimum of two criteria Yes Interpretation of Weight Loss (severe) >5% in 1 month Body Fat Depletion Moderate depletion (severe) Muscle Mass Moderate Depletion (severe) Protein-Calorie Malnutrition Severe #2 Nutrition Diagnosis Food and nutrition-related knowledge deficit Etiology no prior diet education or lack of adequate As Evidenced by Signs and Symptoms pt uninterested in diet education #1 Nutrition Diagnosis Malnutrition Diagnosis Progress(for reassessment Continues documentation) Is patient on ventilator? No Is Patient Ambulatory and/or Out of Bed Yes REE-([facility]-ambulatory/OOB) [ [id number]] Calculation Used for Recommendations [facility] Additional Notes Pro needs 1.2-1.5g/k-102g /day Fluid needs 1ml/kcal Nutrition Intervention Change Diet Order: Continue Teaching Recipient Patient Learning Readiness Poor Teaching Methods Discussion,Handout Response to Teaching Reinforcement needed Education Handouts Provided Pancreatitis Nutrition Therapy Barriers to Learning Cognitive/Verbal RD phone number provided Yes Patient aware of follow up options Yes Goal #1 Continue to meet 75% of protein and energy needs Goal #2 Weight gain/maintenance Follow-Up By: 01/12/21 Additional Comments FU for stable intakes and diet education reinforcement - Malnutrition Assessment Minimum of two criteria: No physical signs of malnutrition - Attestation Statement I have reviewed and agreed w/ Malnutrition eval & tx plan: No
--- NOTE | 2021-01-09 14:29 | Discharge Summary ---
Providers - Providers Date of Admission: 01/02/21 17:34 Date of discharge: 01/09/21 Attending physician: MARI BECK MD 01/02/21 Consult to Case Management [CONS] Routine Services Needed at Discharge: Home Health Services Notified:: cm notified 01/02/21 19:44 Consult to Dietitian/Nutrition [CONS] Routine Physician Instructions: Patient is n.p.o. Reason For Exam: Acute pancreatitis Reason for Consult: Diet education 01/07/21 13:50 Occupational Therapy Evaluate and Treat [CONS] Routine Comment: Reason For Exam: debility Physical Therapy Evaluation and Treat [CONS] Routine Comment: Reason For Exam: debility 01/09/21 11:48 Physical Therapy Evaluation and Treat [CONS] Routine Comment: Reason For Exam: Gait training Primary care physician: EMBEDDED NURSE Hospitalization Reason for admission: Acute pancreatitis, EtOH dependence with DT Condition: Good Hospital course: History of present illness: 60-year-old -[place] male with history of EtOH dependence, GERD and recurrent pancreatitis and nicotine dependence comes in for abdominal pain since last night. Patient apparently had 4-6 beers last night. Poor historian. Pain is epigastric in location and about 10 on a scale of 1-10. No fever or chills. Pain is intermittent but nearly continuous. Associated with nausea. No vomiting. Alcohol is a exacerbating factor. Spicy food is a exacerbating factor. Relieved by drinking milk. Had similar episodes of pancreatitis in the past. - Past Medical History Previous Medical History?: Yes --CVA: Yes (18 months ago) --Family history additional medical history: pancreatitis - Surgical History Past Surgical History?: No - Social History --Smoking Status: Current Every Day Smoker --Substance Use Type: Alc Assessment and plan: (1) Acute pancreatitis Current Visit: Yes Status: Acute Qualifiers: Pancreatitis type: alcohol induced Acute pancreatitis complication: no infection or necrosis Qualified Code(s): K85.20 - Alcohol induced acute pancreatitis without necrosis or infection Plan to address problem: CT abdomen and lipase consistent with pancreatitis Lipase is 683 Amylase was not done Probably EtOH induced Patient is regular EtOH dependent Drinks about 6 packs a day of beer.. We will keep for now for now the patient n.p.o. IV fluids for now (2) EtOH dependence with delirium tremens Current Visit: Yes Status: Chronic Qualifiers: Substance use status: uncomplicated Qualified Code(s): F10.20 - Alcohol dependence, uncomplicated Plan to address problem: Patient initiated on CIWA protocol Banana bag initiated (3) Acute gastritis Current Visit: Yes Status: Acute Qualifiers: Gastritis type: alcoholic Plan to address problem: IV famotidine 20 mg twice a day (4) Macrocytosis Current Visit: Yes Status: Chronic Plan to address problem: Check folic acid and B12 level (5) Acute dehydration Current Visit: No Status: Acute Plan to address problem: IV fluids for now (6) Nicotine dependence Current Visit: Yes Status: Chronic Qualifiers: Nicotine product type: cigarettes Plan to address problem: Patient counseled about stopping smoking Patient initiated on NicoDerm patch (7) Hyponatremia Current Visit: Yes Status: Acute Plan to address problem: IV normal saline for now (8) DVT prophylaxis Current Visit: Yes Status: Acute Plan to address problem: On heparin and GI prophylaxis 01/03/2021 -Acute pancreatitis; pain control. Bowel rest, symptomatic management. -Lipase level is trending down -We will resume with clear liquid diet once abdominal pain is getting better -Extensively counseled about cessation of alcohol 01/04/2021 -Patient started on clear liquid diet, will advance as tolerated -Pain control -Replete hypokalemia 01/05/2021 -Lipase level is trending down -Patient is complaining abdominal pain 7 out of 10 intensity and continue medications. -Advance diet -Discharge in a.m. 01/06: Disoriented this morning. Likely secondary to Geodon given versus withdrawal symptoms from alcohol. We will continue to monitor. Still with pain, BP elevated likely secondary to pain 01/07: Patient seen and examined, still with withdrawal symptoms, at this time had a fall this morning. will obtain xray of the knee. PT/OT eval . 01/08: Patient still on EtOH withdrawal with some delirium tremens received Ativan this morning. Awaiting for PT evaluation. Anticipate discharge tomorrow morning following PT recommendation. Nursing staff implemented fall precaution 01/09/21 patient is seen and examined. Patient is doing better. No sign symptom of withdrawal. Patient denied any abdominal pain. No nausea vomiting. Patient seen and evaluated by physical therapy. PT cleared the patient for discharge. With discharge the patient home with medication. Patient counseled regarding quit drinking. Take the medication as prescribed and follow-up with primary care physician as outpatient within a week. Condition at the time of discharge is stable Disposition: [id number] HOME UNDER [facility] Final Discharge Diagnosis (Prints w/discharge instructions): Acute pancreatitis resolved. Alcohol dependence. Acute gastritis Time spent for discharge: 40 Core Measure Documentation - Palliative Care Palliative Care/ Comfort Measures: Not Applicable - Core Measures Any of the following diagnoses?: none - VTE Discharge Requirements Deep Vein Thrombosis/Pulmonary Embolism Present on Admission: No Exam - Constitutional Vitals: Temp Pulse Resp BP Pulse Ox 98.3 F 83 16 135/98 97 01/09/21 07:10 01/09/21 07:10 01/09/21 07:10 01/09/21 07:10 01/09/21 07:10 General appearance: Present: no acute distress, well-nourished - EENT Eyes: Present: PERRL ENT: hearing intact, clear oral mucosa - Neck Neck: Present: supple, normal ROM - Respiratory Respiratory effort: normal Respiratory: bilateral: CTA - Cardiovascular Heart Sounds: Present: S1 & S2. Absent: rub, click - Extremities Extremities: pulses symmetrical, No edema Peripheral Pulses: within normal limits - Abdominal General gastrointestinal: Present: soft, non-tender, non-distended, normal bowel sounds Male genitourinary: Present: normal - Integumentary Integumentary: Present: clear, warm, dry - Musculoskeletal Musculoskeletal: gait normal, strength equal bilaterally - Psychiatric Psychiatric: appropriate mood/affect, intact judgment & insight - Neurologic Neurologic: CNII-XII intact, moves all extremities Plan Activity: advance as tolerated Diet: low fat, low cholesterol, low salt Follow up with: PRIMARY CARE, [Primary Care Provider] - 3-5 Days Prescriptions: Valsartan [Diovan] 80 mg PO BID #100 tablet Folic Acid [Folvite] 1 mg PO QDAY #30 tablet oxyCODONE /ACETAMINOPHEN [Percocet 5/325] 1 tab PO Q6HR PRN #20 tablet PRN Reason: Pain Pantoprazole [Protonix TAB] 20 mg PO QDAY #30 tablet. Thiamine HCl [Vitamin B-1] 100 mg PO DAILY #30 tablet
[2021-01-09 14:56] LABS: BUN/Creatinine Ratio 13; Blood Urea Nitrogen 10 mg/dL (9-20); Calcium 9.6 mg/dL (8.4-10.2); Hemolysis Index 3
--- NOTE | 2021-01-09 15:33 | XRay Report ---
LEFT FOREARM 2 VIEWS INDICATION / CLINICAL INFORMATION: Left forearm pain after fall. COMPARISON: None available. FINDINGS: BONES and JOINT(S): No acute fracture or subluxation. No significant arthritis. SOFT TISSUES: Moderate edema is noted along the antecubital region with mild edema seen along the pos terior elbow. No other significant abnormality. ADDITIONAL FINDINGS: None. IMPRESSION: Edema along the left elbow without visualization of an acute displaced fracture. Signer Name: Brenden Vergara MD Signed: 01/07/2021 1:06 PM Workstation Name: [id number]
== END 2021-01-09 16:00 | disposition home health service (06) | DRG 391 ==
LOC: ED 09:53 → 3A 17:34 → 3B 22:47
PROVIDERS: ADMIT Internal Medicine; ATTEND Hospitalist
DX: K29.20 Alcoholic gastritis without bleeding (principal); K85.20 Alcohol induced acute pancreatitis without necrosis or infection; E87.1 Hypo-osmolality and hyponatremia; F10.231 Alcohol dependence with withdrawal delirium; E86.0 Dehydration; D75.89 Other specified diseases of blood and blood-forming organs; E87.6 Hypokalemia; Y90.9 Presence of alcohol in blood, level not specified; F17.210 Nicotine dependence, cigarettes, uncomplicated; K21.9 Gastro-esophageal reflux disease without esophagitis; Z86.73 Personal history of transient ischemic attack (TIA), and cerebral infarction without residual deficits; Z79.899 Other long term (current) drug therapy; Z71.41 Alcohol abuse counseling and surveillance of alcoholic; Z71.6 Tobacco abuse counseling
CPT/HCPCS: 36415; 74177; 80048; 80053; 81001; 82150; 83036; 83690; 83735; 85025; 85027; 96361; 96365; 96375; 96376; G0378; J0360; J1170; J2060; J2405; J3411; J3486; J7030; J7042; Q9967